=== PATIENT | male | born 1950 | race Caucasian/White ===

== ENCOUNTER → 2023-05-20 | Outpatient (CLI) | payer OTHER, SELFPAY ==
--- OUTSIDE RECORDS SUMMARY | 2023-05-20 09:58 | XMS RPT_ITS | CCD ---
Author Name Unknown Address [address] [place] [address] Organization [facility] Care Team Providers Care Special Procedures Tech Name Role Phone JESSICA ORTEZ Unavailable Unavailable NOAH FISHER Unavailable Unavailable Nilson Parker Unavailable Unavailable PETERS, ADEN Tolbert Admitting Unavailable PETERS, ADEN Tolbert Attending Unavailable PETERS, ADEN Tolbert Primary Care Unavailable MICHAEL, EDITH Consulting Unavailable EDITH RODRIGUEZ Referring Unavailable BK, RAISSA Moreno Admitting Unavailable BK, RAISSA E Primary Care Unavailable BKRAISSA DAVIS Attending Unavailable PROVIDER, UNKNOWN Consulting Unavailable PROVIDER, UNKNOWN Consulting Unavailable PROVIDER, UNKNOWN Consulting Unavailable MICHAEL, EDITH Consulting Unavailable EDMUNDO, ANNIE PAC Admitting Unavailable EDMUNDO, ANNIE PAC Primary Care Unavailable EDMUNDO, ANNIE PAC Attending Unavailable PROVIDER, UNKNOWN Consulting Unavailable PROVIDER, UNKNOWN Consulting Unavailable PROVIDER, UNKNOWN Consulting Unavailable GARCIA, JOSE PAC Admitting Unavailable GARCIA, JOSE PAC Primary Care Unavailable GARCIA, JOSE PAC Attending Unavailable BROWN, EDITH Consulting Unavailable PROVIDER, UNKNOWN Consulting Unavailable PROVIDER, UNKNOWN Consulting Unavailable PROVIDER, UNKNOWN Consulting Unavailable Problems Active Problems Problem Classification Problem Date Documented Da te Episodic/Chronic Essential hypertension (1 source) Essential (primary) hypertension; 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: [ESSENTIAL (PRIMARY) HYPERTENSION] Onset: 04-07-2017 Chronic Hyperplasia of prostate (1 source) Benign prostatic hyperplasia without lower urinary tract symptoms; 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: [BENIGN PROSTATIC HYPERPLASIA WITHOUT LOWER URINRY TRACT SYMP] Onset: 04-07-2017 Chronic Nausea and vomiting (1 source) Vomiting, unspecified; 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: [VOMITING, UNSPECIFIED] Onset: 04-07-2017 Osteoarthritis (1 source) Unilateral primary osteoarthritis, right knee; 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: [Unilateral primary osteoarthritis, right knee] Onset: 02-10-2023 Chronic Sprains and strains (3 sources) Sprain of medial collateral ligament of right knee, subsequent encounter; 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: [Sprain of medial collateral ligament of right knee, subsequent encounter] Onset: 02-10-2023 Episodic Unclassified (1 source) Unknown / UNK(Unknown) Onset: 03-04-2017 Past or Other Problems Problem Classification Problem Date Documented Da te Episodic/Chronic Abdominal hernia (1 source) Unilateral inguinal hernia, without obstruction or gangrene, not specified as recurrent; 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: [UNIL INGUINAL HERNIA, W/O OBST OR GANGR, NOT SPCF RECUR] Onset: 04-07-2017 Episodic Calculus of urinary tract (1 source) Calculus of ureter; 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: [CALCULUS OF URETER] Onset: 04-07-2017 Episodic Other aftercare (1 source) 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; 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: [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] Onset: 04-07-2017 Episodic Unclassified (1 source) RIGHT URETERAL STONE Onset: 03-04-2017 Results Test Name Value Interpretation Reference Range Facil ity Encounters Encounter Date Encounter Type Care Provider Facility Start: 02-10-2023 End: 03-30-2023 ambulatory [place] Start: 12-01-2022 End: 12-01-2022 Emergency department patient visit [facility] Start: 09-11-2022 End: 09-11-2022 ambulatory JOSE GARCIA [facility] Start: 11-28-2019 Emergency department patient visit ADEN PETERS [facility] Start: 03-04-2017 Evaluation and manag ement of inpatient Nilson Parker Facility:[facility] Start: 02-03-2017 End: 02-03-2017 Emergency department patient visit JESSICA ORTEZ Facility: Payers Date Payer Category Payer Unknown [id number] 1950 Unknown [id number] 1950 Unknown [id number] Unknown [id number] Summary Purpose Family History No Family History Records FoundNo Family History Records FoundNo Family History Records FoundNo Family History Records FoundNo Family History Records Found Advance Directives No Advanced Directives Records FoundNo Advanced Directives Records FoundNo Advanced Directives Records FoundNo Advanced Directives Records FoundNo Advanced Directives Records Found Additional Source Comments (unrecognized sect ion and content) No Status Records FoundNo Status Records FoundNo Status Records FoundNo Status Records FoundNo Status Records Found INFORMATION SOURCE (unrecogn ized section and content) DATE CREATED AUTHOR AUTHOR'S ORGANIZ ATION 09/28/2017 [facility] DATE CREATED AUTHOR AUTHOR'S ORGANIZ ATION 11/28/2019 [facility] DATE CREATED AUTHOR AUTHOR'S ORGANIZ ATION 08/11/2020 [facility] DATE CREATED AUTHOR AUTHOR'S ORGANIZ ATION 04/01/2023 [facility] FOR RECORDS PERTAINING TO PATIENTS WHO ARE OR HAVE BEEN ENROLLED IN A CHEMICAL DEPENDENCY/SUBSTANCEABUSE PROGRAM, SOME INFORMATION MAY BE OMITTED. This clinical summary was aggregated from multiple sources. Caution should be exercised in using it in the provision of clinical care. This summary normalizes information from multiple sources, and as a consequence, information in this document may materially change the coding, format and clinical context of patient data. In addition, data may be omitted in some cases. CLINICAL DECISIONS SHOULD BE BASED ON THE PRIMARY CLINICAL RECORDS. [facility]. provides no warranty or guarantee of the accuracy or completeness of information in this document.
[2023-05-20 10:20] LABS: Absolute Lymphocyte Count 2.48 X10^3/uL (0.83-4.51); Absolute Neutrophil Count 3.6 X10^3/uL (2.0-7.7); Basophil# 0.07 X10^3/uL; Basophil% 0.9 % (0-1); Eosinophil# 0.48 X10^3/uL; Eosinophils% 6.5 % (0-5); Hematocrit 49.7 % (40-54); Hemoglobin 15.9 g/dL (13.0-16.5); Lymphocyte # 2.48 X10^3/ul (0.83-4.51); Lymphocyte % 33.6 % (19-41); Mean Corpuscular Hgb 27.6 pg (27.0-32.0); Mean Corpuscular Volume 86.1 fL (80-94); Mean Platelet Vol. 9.6 fl (6.2-12.0); Monocyte# 0.75 X10^3/uL; Monocyte% 10.2 % (0-10); NRBC Flagged by Analyzer 0 % (0-5); Neutrophil # 3.59 X10^3/uL (2.7-7.7); Neutrophil % 48.7 % (47-70); Platelet Count 237 K/mm3 (150-450); RBC Distribution Width CV 13.2 % (11.6-14.6); RBC Distribution Width SD 41.4 fl (35.1-43.9); Red Blood Count 5.77 M/mm3 (4.6-6.2); White Blood Count 7.4 K/mm3 (4.4-11.0)
[2023-05-20 10:49] LABS: AST(SGOT) 21 U/L (15-37); Alanine Aminotransfer ALT/SGPT 30 U/L (16-61); Albumin, Serum 3.8 g/dL (3.2-5.0); Alkaline Phosphatase 116 U/L (45-117); Anion Gap 3 (5-15); BUN 23 mg/dL (7-18); BUN/Creat Ratio 23.2 RATIO (10-20); Calcium,Total 9.4 mg/dL (8.5-10.1); Chloride 110 mmol/L (98-107); Cholesterol 131 mg/dL (200); Creatinine, Serum 0.99 mg/dL (0.70-1.30); EST Glomerular Filtration Rate 79 mL/min (>60); Est Glom Filt Rate - Afr Amer 95 mL/min (>60); Globulin 3.7 g/dL (2.2-4.2); Glucose 103 mg/dL (74-106); High Density Lipoprotein 39 mg/dL; Potassium 4.3 mmol/L (3.5-5.1); Protein, Total 7.5 g/dL (6.4-8.2); Sodium Level 142 mmol/L (136-145); Triglycerides 91 mg/dL; Very Low Density Lipoprotein 18 mg/dL (5-40)
== END | disposition home or self-care (01) ==
LOC: BIMLAB 09:23
PROVIDERS: PCP Internal Medicine; Referring Provider Internal Medicine; Visit Provider Internal Medicine
DX: I10 Essential (primary) hypertension (principal); E78.2 Mixed hyperlipidemia
CPT/HCPCS: 36415; 80053; 80061; 85025

== ENCOUNTER 2023-07-13 05:48 | Day surgery (SDC) | payer OTHER, SELFPAY ==
--- NOTE | 2023-06-30 07:50 | EKG12_ITS ---
Test Reason : PRE-OP Blood Pressure : / mmHG Vent. Rate : 054 BPM Atrial Rate : 054 BPM P-R Int : 172 ms QRS Dur : 108 ms QT Int : 448 ms P-R-T Axes : 057 006 025 degrees QTc Int : 424 ms Sinus bradycardia Otherwise normal ECG Confirmed by GLADIS URBINA, BETZAIDA ([id number]), desk editor LUZ ALEXANDER ([id number]) on 06/30/2023 9:44:09 AM Referred By: Neel Hui Confirmed By:BETZAIDA GRIFFITH MD
[2023-06-30 09:27] LABS: Hematocrit 47.7 % (40-54); Hemoglobin 15.6 g/dL (13.0-16.5); Mean Corp Hgb Conc 32.7 g/dL (32-36); Mean Corpuscular Hgb 27.7 pg (27.0-32.0); Mean Corpuscular Volume 84.7 fL (80-94); Mean Platelet Vol. 9.8 fl (6.2-12.0); Platelet Count 220 K/mm3 (150-450); RBC Distribution Width CV 13.3 % (11.6-14.6); RBC Distribution Width SD 41.1 fl (35.1-43.9); Red Blood Count 5.63 M/mm3 (4.6-6.2); White Blood Count 6.7 K/mm3 (4.4-11.0)
[2023-06-30 10:00] LABS: Anion Gap 4 (5-15); BUN 21 mg/dL (7-18); BUN/Creat Ratio 20.8 RATIO (10-20); Calcium,Total 9.1 mg/dL (8.5-10.1); Chloride 108 mmol/L (98-107); Creatinine, Serum 1.01 mg/dL (0.70-1.30); EST Glomerular Filtration Rate 77 mL/min (>60); Est Glom Filt Rate - Afr Amer 93 mL/min (>60); Glucose 94 mg/dL (74-106); Potassium 3.8 mmol/L (3.5-5.1); Sodium Level 141 mmol/L (136-145)
[2023-07-13] VITALS (9 sets, daily range): BP systolic 77–132; BP diastolic 46–82; PULSE 51–61; RESP 16–18; TEMP 36.3–36.4; O2SAT 87–98; BMI 26.5
[2023-07-13] MEDS: Lactated Ringers 1,000 ML 15 ML IV (06:18)
--- NOTE | 2023-07-13 06:41 | HP.PCM_ITS ---
History and Physical Date of Admission: 07/13/23 Visit Reasons: INGUINAL HERNIA Chief Complaint: inguinal hernia Is patient in pain?: No Allergies No Known Allergies Allergy (Unverified 06/08/23 13:01) Medications apremilast 30 mg tablet (Otezla) 30 mg PO BID 05/20/23 [History Confirmed 06/08/23] atorvastatin 20 mg tablet 20 mg PO QHS 05/20/23 [History Confirmed 06/08/23] meloxicam 7.5 mg tablet 7.5 mg PO DAILY #30 tabs 05/20/23 [Rx Confirmed 06/08/23] metoprolol succinate 50 mg capsule sprinkle, ext. release 24 hr 50 mg PO DAILY 05/20/23 [History Confirmed 06/08/23] omeprazole 20 mg tablet,delayed release 20 mg PO DAILY 05/20/23 [History Confirmed 06/08/23] [facility] Medical History Arthritis Cataracts, bilateral High blood pressure High blood triglycerides History of cardiac murmur as a child Kidney stones Surgical History H/O lithotripsy H/O toe surgery History of hernia surgery Hx of Achilles tendon repair Hx of cataract surgery Family History Mother Cancer breastFather Myocardial infarction, Onset Age: 48Daughter Neuromyelitis opticaSon Diabetes Social History household members: spouse and children housing: house current occupational status: employed current occupation: [employer]- [place] [employer] Smoking Status: Never smoker Electronic Cigarette Use: not used alcohol intake: current alcohol intake frequency: holidays/special occasions only substance use type: does not use what type of physical activity do you participate in: none fariha/judaism: Temple seatbelt use: always do you feel safe at home: Yes HPI HPI HPI: 72-year-old gentleman is referred by Dr. Kerline Craven for surgical consultation regarding a left inguinal hernia and a written compromise surgical consult and recommendations will be returned to her. There are hernias noted to be quite sizable though the patient does not describe episodes of incarcerated related pain. When further discussing with him he is completely unable to reduce the area however. Since our office visit he has attempted to reduce it but has been unsuccessful. 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 For at least 4 to 5 years he has had a recurrent left inguinal hernia. He had a remote repair as a child. He is not able to reduce the area. He thinks it is slowly enlarging. It is of additional note that he is also had a previous open right inguinal hernia repair in 1996. He has not noticed any particular weakness on the right. He enjoys good health. Has some hypertension hypercholesterolemia which she controls with medication. He has not had any abdominal surgical procedures. ROS General General: No weight change, appetite, fatigue, colon cancer, breast cancer or weakness HEENT HEENT: Yes eye surgery; No difficulty swallowing, eye injury, swollen glands or hoarseness Endo Endocrine: No thyroid disease, diabetes mellitus, thyroid cancer, Hair loss, heat intolerance or cold intolerance Skin Skin: No rash or changing moles Musc Musculoskeletal: Yes arthritis; No back problems, rheumatoid arthritis, gout or joint pain Cardio Cardiovascular: Yes murmur and high blood pressure; No pacemaker, heart disease, atrial fibrillation, heart attack, heart stent, palpitations, shortness of breat with exertion or chest pain Psych Psychiatric: No depression, anxiety or hearing voices Resp Respiratory: No shortness of breath, No sleep apnea, No cough, No COPD, No asthma, No emphysema and No wheezing Gastro Gastrointestinal: No abdominal pain, No nausea or vomiting, No diarrhea, No constipation, No blood in stool, No acid reflux, No hemorrhoids, No ulcers, No gallbladder problem and No black,tarry stools Danny Hematologic: No blood thinners, No blood disorders, No bleeding, No anemia and No blood clots Neuro Neurologic: No system reviewed and no additional complaints, except as documented, No as per HPI, No abnormal gait, No abnormal hearing, No abnormal movements, No abnormal speech, No behavioral changes, No burning sensations, No confusion, No convulsions, No disequilibrium, No dizziness, No localized weakness, No frequent falls, No headache(s), No lack of coordination, No loss of vision, No memory loss, No numbness, No other visual disturbances, No radicular pain, No restless legs, No sensory deficit, No syncope, No tingling, No tremor(s), No weakness and No other Exam Const General: cooperative, healthy appearing, comfortable and no acute distress [facility] Head: normal to inspection Eyes General: appearance normal, both eyes and all related structures Neck Neck: normal visual inspection Chest Chest palpation & inspection: normal inspection of the chest Resp Effort & Inspection: normal respiratory effort Auscultation: clear to auscultation bilaterally Cardio Rate: regular rate Rhythm: regular rhythm GI Palpation: soft and no hepatosplenomegaly Other: Large incarcerated left inguinal hernia. Not reducible with manual manipulation or supine positioning. Testicle descended without mass Healed right groin incision however with slight diffuse give with straining. Nontender. Descended right testicle Musc Cervical Spine: normal cervical lordosis Skin General: no rashes or lesions noted Neuro General: patient alert, patient awake and patient oriented x3 Extrem General: no calf tenderness Psych Appearance: grossly normal Assessment and Plan Assessment and Plan (1) Inguinal hernia of left side without obstruction or gangrene: Status: Acute Plan: 72-year-old gentleman. He has a incarcerated recurrent left inguinal hernia. By inspection this would be consistent with sigmoid colon. He has not had a colonoscopy but did take a Cologuard several years back which was negative. I do recommend to him a left inguinal hernia repair. I have offered him a laparoscopic left inguinal hernia repair with mesh. I have cautioned the however this could require a hybrid approach through an open incision to release the incarcerated contents. Depending upon the difficulty of the procedure if laparoscopically a recurrent right inguinal hernia is identified as I have some suspicion about clinically that I could pursue a laparoscopic recurrent right inguinal hernia repair with mesh. He has had an opportunity to ask and have questions answered. It is obviously the incarcerated hernia on the left that is of primary concern. He is aware of technique, benefit, risk, alternatives. He has had an opportunity to ask and have questions answered. We did discuss briefly some postoperative restrictions as well. I appreciate the opportunity of assisting with the surgical care. We will schedule and proceed at his discretion. Copy: Dr. Kerline Hui M.D., F.A.C.S Patient has been reexamined. The left inguinal hernia which is recurrent remains nonreducible. The patient is aware that we may need to utilize a laparoscopic hybrid open approach to reduce this left inguinal hernia. He is also aware that if a right inguinal hernia is identified in the left is otherwise uncomplicated then I have offered him a laparoscopic right inguinal hernia repair as well. He is desiring of this as an option. We will proceed as noted. Neel Hui M.D., F.A.C.S.
--- NOTE | 2023-07-13 06:58 | DCINST_ITS ---
Discharge Instructions Procedure General Surgery Diet Discharge Diet: Light diet - advance as tolerated (if you have questions about your diet instructions, please talk to you doctor.) Activity Discharge Activity: May Not Drive (for 3-5 days or while taking narcotic pain medicine.) May shower in (days): 1 Lifting Restrictions: 10 pounds Dressing / Incision Call your doctor if your incision/area has: Continuous Slow Oozing, Sudden Increased Bleeding, Increased Pain/ Swelling, Increased Redness and Foul Smelling Discharge Call your doctor if you observe: Fever of 101 or Higher Suture Line Care: Avoid Pulling/Pushing and Avoid Pinching/Bending Additional Dressing/Incision Instructions:: Change or remove dressing in 4 days. Leave steri-strips in place for 1 week. Follow Up Care Please Follow Up With: Neel Hui MD When: Call [phone] to make an appointment to be seen in about 10 days. Test Results: Test results from this visit will be discussed in further detail at your follow- up appointment, if applicable. Discharge Plan Admission Attending Provider: Neel Hui Primary Care Provider: Kerline Craven Discharge Orders/Prescriptions Prescriptions: No Action atorvastatin 20 mg tablet 20 mg PO QHS metoprolol succinate 50 mg capsule,sprinkle,ER 24hr 50 mg PO QHS omeprazole 20 mg tablet,delayed release (DR/EC) 20 mg PO QHS Otezla 30 mg tablet 30 mg PO BID meloxicam 7.5 mg tablet 7.5 mg PO QHS Qty: 30 2RF Other Ambulatory Orders: 12 Lead EKG (Routine) Timeframe: [id number] Location: None Selected Ordered By: Dr. Neel Hui Referrals / Follow Up: Kerline Craven MD [Primary Care Provider] - Disposition Disposition (needs filled in before D/C Order can be placed): Home, Self Care
[2023-07-13] MEDS: Cefazolin 2 GM in 0.9% Normal Saline (100mL Bag) 100 ML IV (07:23)
[2023-07-13] MEDS: Bupivacaine Mpf 0.5% 30 ML VIAL (07:42)
--- NOTE | 2023-07-13 08:31 | PCM.OPRPT ---
Report of Operation Date of Procedure: 07/13/23 Pre-Operative Diagnosis: Recurrent incarcerated left inguinal hernia Post-Operative Diagnosis: Recurrent incarcerated direct left inguinal hernia with small indirect component Surgery/Procedure Performed:: Laparoscopic left inguinal herniorrhaphy with Bard 3D max large mesh. Bard 3D max large. Lot [id number], reference [id number], expiry date 12/31/2026 Description of Surgical Findings:: Timeout informed consent was obtained. 73-year-old gentleman was taken to the operating placed upon the table underwent general endotracheal intubation anesthesia. Ancef 2 g were given intravenously. The abdomen and scrotum were sterilely prepped and draped. 0.5% Marcaine was used as a local anesthetic. Throughout the procedure a total of 30 cc was used. Skin sites were pre and SIs. A vertical infraumbilical incision was created holding sutures of 0 Vicryl placed varies Inserted saline drop test performed the abdomen was insufflated with CO2 to a pressure of 10 mmHg pressure. 10 mm trocar inserted. 10 mm laparoscope inserted. Inspection revealed a large defect in the left groin with omental fibrofatty tissue involved. With mild pressure this was able to be easily reduced. This was determined to be a direct defect medial to the inferior epigastric. Inspection of the right groin was completely occluded there were adhesions of omentum to the anterior abdominal wall extending down to the right groin obliterating clean access to the right groin. I did not make any attempt to free these adhesions at this time as the patient was clinically not symptomatic and he only had a mild weakness on clinical examination. 5 mm trocars were placed in the right and left lower quadrant. The peritoneum superior and lateral to the internal ring on the left was incised carried medially. Then tediously the peritoneum was dissected free. It was rather adherent I did obtain some defects in the peritoneum was then able to identify the very large hernia sac within this direct defect and carefully and tediously completely dissected free. Fortunately was able to completely reduce the sac. I completely freed the peritoneum to gain good access to that indirect and direct space and then identified the pubic tubercle and freed up anteriorly as well. I now had excellent visualization of the left groin with likely a small weakness at the indirect spot large deep hernia site at the direct spot no evidence of any femoral hernias. I placed a large Bard 3D max mesh very nicely. I secured that laterally superiorly and medially with secure strap. I felt that I had absolutely excellent coverage of the groin area in particular the hernial defect. The peritoneum was approximated self and I utilized the hernia sac to assist with obliteration to the mesh and secured that to the anterior abdominal wall with secure strap and Hem-o-chi clip. Complete obliteration of the mesh was achieved. Hemostasis was intact. The abdomen was deflated CO2. The fascia at the umbilicus approximately #0 Vicryl for great suture. Skin edges approximated up to 4 Monocryl subdermal stitches. Steri-Strips Telfa OpSite dressings applied. Sponge and instrument and needle counts were reported to the surgeon to be correct. Specimens none. Drains none. Blood loss minimal. The patient was taken to the recovery room in satisfactory addition with apparent complication Neel Hui M.D., F.A.C.S. Surgeon: Neel Hui Type of Anesthesia: General and Local Anesthesiologist: Keron Mason
[2023-07-13] MEDS: Acetaminophen 325 MG Tablet 650 MG PO (11:21)
== END 2023-07-13 12:12 | disposition home or self-care (01) ==
LOC: SDC 05:49 → AC 05:50
PROVIDERS: PCP Internal Medicine; Referring Provider Surgery; Visit Provider Surgery
PROC: (CPT 49650; principal; 2023-07-13 07:10)
DX: K40.31 Unilateral inguinal hernia, with obstruction, without gangrene, recurrent (principal); I10 Essential (primary) hypertension; Z87.19 Personal history of other diseases of the digestive system; Z87.898 Personal history of other specified conditions; M19.90 Unspecified osteoarthritis, unspecified site; K21.9 Gastro-esophageal reflux disease without esophagitis
CPT/HCPCS: 49651; 00840; 36415; 80048; 85027; 93005; J7120; C1781; J2405

== ENCOUNTER → 2024-05-24 | Outpatient (CLI) | payer OTHER, SELFPAY ==
[2024-05-24 12:21] LABS: Absolute Lymphocyte Count 1.82 X10^3/uL (0.83-4.51); Absolute Neutrophil Count 3.3 X10^3/uL (2.0-7.7); Basophil# 0.06 X10^3/uL; Eosinophil# 0.28 X10^3/uL; Eosinophils% 4.6 % (0-5); Hematocrit 46.3 % (40-54); Hemoglobin 15.5 g/dL (13.0-16.5); Lymphocyte # 1.82 X10^3/ul (0.83-4.51); Lymphocyte % 29.6 % (19-41); Mean Corp Hgb Conc 33.5 g/dL (32-36); Mean Corpuscular Hgb 28.5 pg (27.0-32.0); Mean Corpuscular Volume 85.3 fL (80-94); Monocyte# 0.69 X10^3/uL; Monocyte% 11.2 % (0-10); NRBC Flagged by Analyzer 0 % (0-5); Neutrophil # 3.28 X10^3/uL (2.7-7.7); Neutrophil % 53.4 % (47-70); Platelet Count 224 K/mm3 (150-450); RBC Distribution Width CV 13.6 % (11.6-14.6); RBC Distribution Width SD 41.9 fl (35.1-43.9); Red Blood Count 5.43 M/mm3 (4.6-6.2); White Blood Count 6.1 K/mm3 (4.4-11.0)
[2024-05-24 13:13] LABS: AST(SGOT) 28 U/L (15-37); Alanine Aminotransfer ALT/SGPT 36 U/L (16-61); Albumin, Serum 3.7 g/dL (3.2-5.0); Alkaline Phosphatase 88 U/L (45-117); Anion Gap 7 (5-15); BUN 18 mg/dL (7-18); BUN/Creat Ratio 19.4 RATIO (10-20); Calcium,Total 9.8 mg/dL (8.5-10.1); Chloride 106 mmol/L (98-107); Cholesterol 123 mg/dL (200); Creatinine, Serum 0.93 mg/dL (0.70-1.30); EST Glomerular Filtration Rate 84 mL/min (>60); Est Glom Filt Rate - Afr Amer 102 mL/min (>60); Globulin 3.6 g/dL (2.2-4.2); Glucose 103 mg/dL (74-106); High Density Lipoprotein 45 mg/dL; Potassium 3.9 mmol/L (3.5-5.1); Protein, Total 7.3 g/dL (6.4-8.2); Sodium Level 138 mmol/L (136-145); Triglycerides 97 mg/dL; Very Low Density Lipoprotein 19 mg/dL (5-40)
== END | disposition home or self-care (01) ==
LOC: BIMLAB 08:05
PROVIDERS: PCP Internal Medicine; Referring Provider Internal Medicine; Visit Provider Internal Medicine
DX: I10 Essential (primary) hypertension (principal); E78.2 Mixed hyperlipidemia
CPT/HCPCS: 36415; 80053; 80061; 85025

== ENCOUNTER → 2024-07-28 | Outpatient (CLI) | payer OTHER, SELFPAY ==
--- NOTE | 2024-07-28 08:57 | ART_ITS ---
Reason For Study Reason For Study: PVD Procedure A bilateral lower extremity continuous wave Doppler with analog waveform analysis,segmental pressures,and ankle brachial indexes without exercise. Left Segmental Pressures Left brachial= 144mmHg. Left posterior tibial artery = 169mmHg. Left dorsalis pedis artery = 161mmHg. Left digit = 132 mmHg. The left posterior tibial artery waveforms are triphasic. The left dorsalis pedis waveforms are triphasic. Right Segmental Pressures Right brachial= 149mmHg. Right posterior tibial artery = 161mmHg. Right dorsalis pedis artery = 177mmHg. Right digit = 164 mmHg. The right posterior tibial artery waveforms are triphasic. The right dorsalis pedis waveforms are triphasic. Indices The right ankle brachial index by the posterior tibial artery is 1.08. The right ankle brachial index by the dorsalis pedis is 1.19. The right digital-brachial index is 1.10. The left ankle brachial index by the posterior tibial artery is 1.13. The left ankle brachial index by the dorsalis pedis is 1.08. The left digital-brachial index is 0.89. VL/Lower Ext Art Exam w/o Exercis Interpretation Summary Triphasic Doppler waveforms are noted at ankle level bilaterally. Pulse-volume recordings appear satisfactory at all levels bilaterally. Resting ankle-brachial indices are normal bilaterally. Digi yesi-brachial indices are normal bilaterally. There is no evidence of significant arterial occlusive disease in the lower ext remities bilaterally. Ordering Physician: Micheal Taylor Referring Physician: Kerline Craven Performed By: Ti Woodard RVT
--- NOTE | 2024-07-28 08:57 | VDLE_ITS ---
Reason For Study Reason For Study: Edema RIGHT LEFT GSV is normal. GSV is normal. CFV is compressible, spontaneous, phasic, competent CFV is compressible, spontaneous, phasic, competent, and demonstrates normal augmentation. and demonstrates normal augmentation. FV is compressible, spontaneous, phasic, competent FV is compressible, spontaneous, phasic, competent and demonstrates normal augmentation. and demonstrates normal augmentation. POP V is compressible, spontaneous, phasic, competent POP V is compressible, spontaneous, phasic, competent and demonstrates normal augmentation. and demonstrates normal augmentation. T/P Trunk is compressible. T/P Trunk is compressible. PTV is compressible. PTV is compressible. RT PerV is compressible. LT PerV is compressible. Procedure This is a venous duplex using B-mode, color flow and spectral Doppler. Exam performed in department. The exam was diagnostic. VL/Venous Duplex US - Sp Extrem Interpretation Summary Deep veins of the lower extremities are bilaterally patent and compressible seg mentally. There is no evidence of deep vein thrombosis on either side. Valvular competence appears intact within the p roximal deep venous systems bilaterally. The great saphenous veins appear bilaterally patent and compressible segmentall y. Ordering Physician: Micheal Taylor Referring Physician: Kerline Craven Performed By: Ti Woodard, RVT
--- NOTE | 2024-07-28 10:08 | RAD_ITS ---
PROCEDURE: LUMBAR SPINE 2 OR 3 VIEWS 07/28/2024 REASON FOR EXAM: OTHER HEREDITARY AND IDIOPATHIC NEUROPATHIES TECHNIQUE: 3 view(s) of the lumbar spine COMPARISON: None FINDINGS: Vertebrae: Anterior spondylosis at the L3-L4 and L4-L5 levels. Discs: Mild multilevel disc space narrowing. Alignment: Normal alignment. Exaggerated lumbar lordosis. Other: RAD/Lumbar Spine 2 or 3 Views IMPRESSION: MILD DEGENERATIVE CHANGES OF THE LUMBAR SPINE. Exaggerated lumbar lordosis. Reading Location: [place] [id number]
== END | disposition home or self-care (01) ==
PROVIDERS: PCP Internal Medicine; Referring Provider Student in an Organized Health Care Education/Training Program; Visit Provider Student in an Organized Health Care Education/Training Program
DX: G60.8 Other hereditary and idiopathic neuropathies (principal); I73.89 Other specified peripheral vascular diseases; R60.0 Localized edema
CPT/HCPCS: 72100; 93923; 93970

== ENCOUNTER → 2024-10-24 | Outpatient (CLI) | payer OTHER, SELFPAY ==
--- NOTE | 2024-10-24 11:02 | NEURO ---
NCS and/or EMG Patient Report Ordering Doctor: Micheal Taylor DATE OF SERVICE: 10/24/24 Clinical Summary: 74 year old male with symptoms of numbness and tingling in both feet. Nerve Conduction Studies Summary: Nerve conduction studies were performed in the bilateral lower extremities. The sural SNAP distal latency was prolonged bilaterally. The right peroneal-EDB CMAP amplitude was diffusely reduced. The right tibial-AH CMAP distal latency was prolonged. The peroneal and tibial motor conduction velocities were reduced bilaterally. The peroneal and tibial F-wave onset latencies were prolonged. Needle Examination Summary: Needle examination of select muscles of the bilateral lower extremities demonstrated a higher proportion of motor unit action potentials with reduced recruitment, increased amplitude, increased duration, and polyphasia in the right biceps femoris (long head), tibialis anterior, peroneus longus, and medial gastrocnemius muscles. Impression: This is an abnormal study. 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 The lower motor conduction velocities and prolonged F-wave onset latencies are suggestive of a mild, length-dependent, large-fiber peripheral polyneuropathy although not definitively diagnostic by itself. Multi Select Codes Neurology Neurology Interp Codes: 78846-87 Musc test done w/n test comp (interp) (2) and 17709-24 Nrv cndj test 7-8 studies (interp)
== END | disposition home or self-care (01) ==
LOC: PSN 08:43
PROVIDERS: PCP Internal Medicine; Referring Provider Student in an Organized Health Care Education/Training Program; Visit Provider Student in an Organized Health Care Education/Training Program
DX: G60.8 Other hereditary and idiopathic neuropathies (principal); I73.89 Other specified peripheral vascular diseases; R60.0 Localized edema
CPT/HCPCS: 95886; 95910

== ENCOUNTER → 2024-11-27 | Outpatient (CLI) | payer OTHER, SELFPAY ==
--- NOTE | 2024-11-27 16:30 | MRI_ITS ---
PROCEDURE: SPINE LUMBAR (ROUTINE) 11/27/2024 REASON FOR EXAM: LUMBAR RADICULOPATHY,NEUROPATHY TECHNIQUE: SPINE LUMBAR (ROUTINE) FINDINGS: Normal lumbar alignment and vertebral body height. Normal conus and cauda equina. No retroperitoneal mass. Mild canal narrowing at L1-2, L2-3 and L3-4 from degenerative annular bulging. At L4-5 severe right L4 foraminal stenosis from bulging disc and facet degeneration with potential right L4 nerve root impingement. Mild central canal narrowing. L5-S1 is positive for facet arthrosis MRI/Spine Lumbar (Routine) IMPRESSION: Asymmetric right-sided foraminal stenosis at L4-5 with potential L4 nerve root impingement. Please correlate clinically Reading Location: [id number]
--- OUTSIDE RECORDS SUMMARY | 2024-11-27 17:56 | XMS RPT_ITS | CCD ---
Author Organization [facility] Care Team Providers Care Executive Creative Director Name Role Phone JESSICA ORTEZ Unavailable Unavailable NOAH FISHER Unavailable Unavailable Nilson Parker Unavailable Unavailable ADEN PETERS Admitting Unavailable ADEN PETERS Attending Unavailable ADEN PETERS Primary Care Unavailable Dr. Kerline Craven Attending Provider [phone] Gorge PEREZ, Jose Kelly Unavailable [phone] Carlos URBINA, Dr. Gunn ([facility]) Unavailable [phone] Lisette URBINA ([place]), Dr. Stock Unavailable [phone] Hannah URBINA, Dr. Higinio Adamson Unavailable [phone] [facility], . Ml office Unavailable Keith URBINA, Dr. Nilson Moreno Unavailable Denzel Rodriguez MD Unavailable Sal CLIENT SUCCESS MANAGER, Venus C Unavailable Unavailable Chepe URBINA, Neel Sarkar Unavailable Luz Maria Wright Unavailable Unavailable Duncan BOUDREAUX, Christine Unavailable Unavailable Geoffrey DIASN, Nelda Unavailable Unavailable Ro MAHER, Margaret Sarkar Unavailable Unavaila otis Lucas CLIENT SUCCESS MANAGER, Imani Unavailable Unavailable Vipin RN, Courtney Y Unavailable Unavailable Nilesh CLIENT SUCCESS MANAGER, Dacia Unavailable Unavailable Lorie DIASN, Eileen K Unavailable Unagauri Singleton PA-C, Raya Kelly Unavailable [phone] Devika CLIENT SUCCESS MANAGER, Mira Lopez Unavailable Unavailab le Karin CLIENT SUCCESS MANAGER, Lizbeth Sargent Unavailable Unavailab le Jaz CLIENT SUCCESS MANAGER, Sachi Buchanan Unavailable Unavailab le [place] CLIENT SUCCESS MANAGER, Ritu Unavailable Unavailabl e Seferino CLIENT SUCCESS MANAGER, Daphne N Unavailable Unavaila ble Unavailable Unavailable BK, BYRON E Admitting Unavailable BK, BYRON E Primary Care Unavailable BK, BYRON E Attending Unavailable MICHAEL, DENZEL Consulting Unavailable BROWN, DENZEL Referring Unavailable PROVIDER, UNKNOWN Consulting Unavailable PROVIDER, UNKNOWN Consulting Unavailable PROVIDER, UNKNOWN Consulting Unavailable EDMUNDO, ANNIE PAC Admitting Unavailable EDMUNDO, ANNIE PAC Primary Care Unavailable EDMUNDO, ANNIE PAC Attending Unavailable BROWN, DENZEL Consulting Unavailable PROVIDER, UNKNOWN Consulting Unavailable PROVIDER, UNKNOWN Consulting Unavailable PROVIDER, UNKNOWN Consulting Unavailable GARCIA, JOSE PAC Attending Unavailable GARCIA, JOSE PAC Admitting Unavailable GARCIA, JOSE PAC Primary Care Unavailable BROWN, DENZEL Consulting Unavailable PROVIDER, UNKNOWN Consulting Unavailable PROVIDER, UNKNOWN Consulting Unavailable PROVIDER, UNKNOWN Consulting Unavailable BK, BYRON E Admitting Unavailable BK, BYRON E Primary Care Unavailable BK, BYRON E Attending Unavailable BROWN, DENZEL Consulting Unavailable BROWN, DENZEL Referring Unavailable PROVIDER, UNKNOWN Consulting Unavailable PROVIDER, UNKNOWN Consulting Unavailable PROVIDER, UNKNOWN Consulting Unavailable Herber URBINA, Dr. Churchill Primary Care Provider [phone] Brandon DPM, Dr. Burton Attending Provider [phone] Brandon BALL, Dr. Burton Referring Provider [phone] Dr. Iftikhar Headley MD Attending Provider [phone] Brandon BALL, Dr. Burton Other Provider Kofi URBINA, Dr. Galindo Attending Provider [phone] Dr. Kerline Craven MD Referring Provider Petey MANAGER WORK-CChristelle Attending Provider [phone] Yonis URBINA, Dr. Powers Attending Provider [phone] Herber, Kerline Primary Care Unavailable Micheal Taylor Attending Unavailable Micheal Taylor Referring Unavailable [place], Kerline Primary Care Unavailable Micheal Taylor Attending Unavailable Micheal Taylor Referring Unavailable Herber, Kerline Primary Care Unavailable Christelle Angelo Attending Unavailable Christelle Angelo Referring Unavailable [place], Kerline Primary Care Unavailable Herber, Kerline Attending Unavailable [place], Kerline Referring Unavailable [place], Kerline Primary Care Unavailable [place], Kerline Attending Unavailable Herber, Kerline Referring Unavailable Herber, Kerline Attending Unavailable Herber, Kerline Primary Care Unavailable Herber, Kerline Referring Unavailable Micheal Taylor Referring Unavailable [place], Kerline Primary Care Unavailable Micheal Taylor Attending Unavailable Micheal Taylor Consulting Unavailable Josie Kirby Attending Unavailable [place], Kerline Primary Care Unavailable Micheal Taylor Referring Unavailable [place], Kerline Referring Unavailable Herber, Kerline Primary Care Unavailable Christelle Angelo Attending Unavailable Gio Somers Attending Unavailable Herber, Kerline Primary Care Unavailable Medications Current Medications Medication Drug Class(es) Dates Sig (Normalized) Sig (Original) apremilast 30 mg oral tablet (9 sources) Start: 05-20-2023 take 1 tablet by mouth twice daily Apremilast (Otezla) 30 mg tablet Active 30 mg PO TWICE A DAY May 20, 2023 1:00am Comment on above: pt normally only adela es 1 cyclobenzaprine hydrochloride 10 mg oral tablet (10 sources) Muscle Relaxant Start: 07-04-2021 take 1 tablet by mouth three times daily as needed Cyclobenzaprine HCl 10 MG Oral Tablet ; 1 (one) Tablet three times daily as needed for muscle spasm; may cause drowsiness for 0 days Quantity: 30 {Tablet} Refills: 0 Ordered: 04-Jul-2021 CHRIS Garcia Start: 04-Jul-2021 Comments: Medication taken as needed. Start: 02-16-2011 End: 05-23-2013 take 1 tablet by mouth three times daily as needed FLEXERIL, 10MG (Oral Tablet) ; 1 Tablet three times daily PRN for 0 days Quantity: 30 {Tablet} Refills: 1 Ordered: 05-Jul-2012 MD Neel Domingo Start: 16-Feb-2011 End: 23-May-2013 Status: Discontinued Comments: This order discontinued per [facility]. Comment on above: Medication taken as needed. This order discontin ued per [facility]. ofloxacin 3 mg/ml ophthalmic solution (5 sources) Quinolone Antimicrobial Start: 12-04-2021 Ofloxacin 0.3 % Ophthalmic Solution ; 5 Metric Drop daily for 0 days Quantity: 10 {Milliliter} Refills: 0 Ordered: 04-Dec-2021 JANUSZ Song Christine Start: 04-Dec-2021 Comments: For use in ear for otitis externa Comment on above: For use in ear for o titis externa Completed/Discontinued Medications Medication Drug Class(es) Dates Sig (Normalized) Sig (Original) acetaminophen 325 mg / HYDROcodone bitartrate 5 mg oral tablet (3 sources) Opioid Agonist Start: 07-13-2023 End: 07-22-2023 Hydrocodone-Acetam inophen 5-325 mg tablet Discontinued 1 {tbl} PO EVERY 6 HOURS as needed for pain 10 3 0 July 13, 2023 July 22, 2023 9:26am Inguinal hernia of left side without obstruction or gangrene aspirin 81 mg delayed release oral tablet (9 sources) Platelet Aggregation Inhibitor, Nonsteroidal Anti-inflammatory Drug Start: 05-20-2023 End: 06-08-2023 Aspirin (Adult Low Dose Aspirin) 81 mg tablet,delayed release (DR/EC) Discontinued 81 mg PO DAILY May 20, 2023 1:00am June 08, 2023 2:01pm take 1 tablet by mouth once yvonne y BABY ASPIRIN, 81MG (Oral Tablet Chewable) ; 1 daily (81 MG) Status: Inactive atorvastatin 20 mg oral tablet (20 sources) HMG-CoA Reductase Inhibitor Start: 07-25-2020 End: 08-29-2024 take 1 tablet by mouth at bedtime Atorvastatin 20 mg tablet Discontinued 20 mg PO AT BEDTIME 90 1 February 29, 2024 12:35pm August 29, 2024 11:38am Comment on above: Mail order. CANCEL - needs to go to mail order pharmacy ciprofloxacin 250 mg oral tablet (5 sources) Quinolone Antimicrobial Start: 04-28-2017 End: 05-05-2017 take 1 tablet by mouth twice daily Ciprofloxacin HCl 250 MG Oral Tablet ; 1 (one) Tablet two times daily for 7 days Quantity: 14 {Tablet} Refills: 0 Ordered: 28-Apr-2017 MD Neel Domingo Start: 28-Apr-2017 End: 05-May-2017 Status: Inactive fluocinolone acetonide 0.61750 mg/mg topical ointment (5 sources) Corticosteroid Start: 02-16-2011 End: 07-05-2012 FLUOCINOLONE ACETONIDE, 0.025% (External Ointment) ; 1 application(s) two times daily for 0 days Quantity: 15 {gram(s)} Refills: 2 Ordered: 05-Jul-2012 WINNIE Gentile Start: 16-Feb-2011 End: 05-Jul-2012 Status: Inactive 12 hr guaiFENesin 600 mg extended release oral tablet (5 sources) Start: 04-25-2013 End: 02-26-2015 take 1 tablet by mouth twice daily GUAIFENESIN ER, 600MG (Oral Tablet Extended Release 12 Hour) ; 1 (one) Tablet two times daily for 0 days Quantity: 12 {Tablet} Refills: 1 Ordered: 26-Feb-2015 WINNIE Gentile Start: 25-Apr-2013 End: 26-Feb-2015 Status: Inactive homatropine methylbromide 0.3 mg/ml / HYDROcodone bitartrate 1 mg/ml oral solution (5 sources) Opioid Agonist, Cholinergic Muscarinic Agonist Start: 04-21-2013 End: 05-01-2013 HYDROCODONE-HOMAT ROPINE, 5-1.5MG/5ML (Oral Syrup) ; 1 (one) teaspoon(s) every four hours as needed for cough for 10 days Quantity: 4 {Ounce} Refills: 0 Ordered: 21-Apr-2013 MD Neel Domingo Start: 21-Apr-2013 End: 01-May-2013 Status: Inactive Comments: Medication taken as needed. May cause drowsiness Comment on above: Medication taken as needed. May cause drowsiness levoFLOXacin 500 mg oral tablet (5 sources) Quinolone Antimicrobial Start: 04-21-2013 End: 04-28-2013 take 1 tablet by mouth once daily LEVOFLOXACIN, 500MG (Oral Tablet) ; 1 (one) Tablet once daily for 7 days Quantity: 7 {Tablet} Refills: 0 Ordered: 21-Apr-2013 MD Neel Domingo Start: 21-Apr-2013 End: 28-Apr-2013 Status: Inactive meloxicam 7.5 mg oral tablet (19 sources) Nonsteroidal Anti-inflammatory Drug Start: 05-20-2023 End: 08-29-2024 take 1 tablet by mouth at bedtime Meloxicam 7.5 mg tablet Discontinued 7.5 mg PO AT BEDTIME 90 March 13, 2024 3:42pm August 29, 2024 12:54pm metaxalone 800 mg oral tablet (5 sources) Start: 03-17-2011 End: 07-05-2012 take 1 tablet by mouth at bedtime SKELAXIN, 800MG (Oral Tablet) ; 1 Tablet at bedtime for 0 days Quantity: 10 {Tablet} Refills: 0 Ordered: 05-Jul-2012 WINNIE Gentileisten Ramandeep Start: 17-Mar-2011 End: 05-Jul-2012 Status: Inactive methylPREDNISolone 4 mg oral tablet (5 sources) Corticosteroid Start: 12-17-2011 End: 12-23-2011 MEDROL (CELSO), 4MG (Oral Tablet) ; 1 Tablet as directed on pack for 6 days Quantity: 1 {dose_pack} Refills: 0 Ordered: 17-Dec-2011 WINNIE Fortune Start: 17-Dec-2011 End: 23-Dec-2011 Status: Inactive 24 hr metoprolol succinate 25 mg extended release oral tablet (20 sources) beta-Adrenergic Amna Start: 09-20-2023 End: 11-10-2024 take 1 tablet by mouth once daily Metoprolol Succinate 25 mg tablet extended release 24 hr Discontinued 25 mg PO DAILY 90 February 29, 2024 10:52am November 10, 2024 8:22am On Hold: completed Start: 09-16-2023 End: 09-20-2023 take 1 tablet by mouth once daily Metoprolol Succinate 50 mg tablet extended release 24 hr Discontinued 50 mg PO DAILY 30 September 16, 2023 12:00am September 20, 2023 7:53am Start: 05-20-2023 End: 09-16-2023 take 1 capsule by mouth every twenty-four hours at bedtime Metoprolol Succinate 50 mg capsule,sprinkle,ER 24hr Discontinued 50 mg PO AT BEDTIME 30 September 16, 2023 3:43pm September 16, 2023 4:43pm Start: 05-20-2023 take 50 mg by mouth once daily Metoprolol Succinate Active 50 MG PO DAILY May 20, 2023 12:00am Start: 06-19-2022 take 1 tablet by ifrah th once daily Metoprolol Succinate ER 50 MG Oral Tablet Extended Release 24 Hour ; 1 (one) Tablet daily for 0 days Quantity: 90 {Tablet} Refills: 3 Ordered: 19-Jun-2022 MD Denzel Rodriguez Start: 19-Jun-2022 Comments: Mail order. Comment on above: Mail order. mometasone furoate 1 mg/ml topical cream (5 sources) Corticosteroid Start: 1 End: 3 MOMETASONE FUROATE, 0.1% (External Cream) ; 1 application(s) daily for 0 days Quantity: 30 {gram(s)} Refills: 2 Ordered: 05-Jul-2012 WINNIE Gentile Start: 14-Oct-2010 End: 05-Jul-2012 Status: Inactive 24 hr niacin 500 mg extended release oral tablet (5 sources) Nicotinic Acid Start: 2 End: 5 take 1 tablet by mouth once daily NIASPAN, 500MG (Oral Tablet Extended Release) ; 1 Tablet ER qd for 0 days Quantity: 90 {Tablet_ER} Refills: 3 Ordered: 26-Feb-2015 WINNIE Gentile Start: 05-May-2011 End: 26-Feb-2015 Status: Inactive omeprazole 20 mg delayed release oral tablet (20 sources) Proton Pump Inhibitor Start: 4 End: 5 take 1 tablet by mouth at bedtime Omeprazole 20 mg tablet,delayed release (DR/EC) Discontinued 20 mg PO AT BEDTIME 90 1 December 07, 2023 3:57pm May 24, 2024 9:02am Start: 06-19-2022 take 1 capsule by [facility] once daily Omeprazole 20 MG Oral Capsule Delayed Release ; 1 (one) Capsule daily for 0 days Quantity: 90 {Capsule} Refills: 3 Ordered: 19-Jun-2022 MD Denzel Rodriguez Start: 19-Jun-2022 Comments: Mail order. Comment on above: Mail order. predniSONE 10 mg oral tablet (5 sources) Start: 018 End: take 2 tablets by mouth twice daily PredniSONE 10 MG Oral Tablet ; 2 (two) Tablet twice daily for 7 days Quantity: 28 {Tablet} Refills: 0 Ordered: 06-Jan-2018 MD Neel Domingo Start: 06-Jan-2018 End: 13-Jan-2018 Status: Inactive sildenafil 100 mg oral tablet (5 sources) Phosphodiesterase 5 Inhibitor Start: End: take 1 tablet by mouth every hour Viagra 100 MG Oral Tablet ; 1 (one) Tablet one hour prior to intercourse for 0 days Quantity: 3 {Tablet} Refills: 1 Ordered: 04-Jul-2021 NIKA Starr Start: 26-Feb-2015 End: 04-Jul-2021 Status: Inactive tamsulosin hydrochloride 0.4 mg oral capsule (5 sources) alpha-Adrenergic Amna Start: End: take 1 capsule by mouth twice daily Flomax 0.4 MG Oral Capsule ; 1 (one) Capsule Capsule two times daily for 0 days Quantity: 30 {Capsule} Refills: 0 Ordered: 21-Dec-2018 WINNIE Vera Start: 22-Feb-2017 End: 21-Dec-2018 Status: Inactive terbinafine 250 mg oral tablet (5 sources) Allylamine Antifungal Start: End: take 1 tablet by mouth once daily LAMISIL, 250MG (Oral Tablet) ; 1 Tablet daily for 0 days Quantity: 21 {Tablet} Refills: 0 Ordered: 05-Jul-2012 WINNIE Gentile Start: 12-Aug-2010 End: 05-Jul-2012 Status: Inactive traMADol hydrochloride 50 mg oral tablet (5 sources) Opioid Agonist Start: End: take 1 tablet by mouth every six hours as needed for pain traMADol HCl 50 MG Oral Tablet ; 1 (one) Tablet Tablet every 6 hours PRN for moderate to Severe Pain for 0 days Quantity: 30 {Tablet} Refills: 0 Ordered: 21-Dec-2018 WINNIE Vera Start: 22-Feb-2017 End: 21-Dec-2018 Status: Inactive Problems Active Problems Problem Classification Problem Date Documented Date Episodic/Chronic Abdominal hernia (15 sources) Unilateral inguinal hernia, without obstruction or gangrene, not specified as recurrent; 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: [Inguinal hernia, without mention of obstruction or gangrene, unilateral or unspecified (not specified as recurrent)] Onset: 04-07-2017 05-20-2023 Episodic Acute bronchitis (10 sources) Acute bronchitis 04-09-2016 Episodic Administrative/socia l admission (1 source) Persons encountering health services in other specified circumstances; 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: [Other reasons for seeking consultation] 05-20-2023 Episodic Allergic reactions (20 sources) Contact dermatitis; 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: [Unspecified contact dermatitis, unspecified cause] 04-09-2016 Episodic Calculus of urinary tract (20 sources) Calculus of ureter; 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: [Urolithiasis ] Onset: 04-07-2017 09-11-2022 Episodic Disorders of lipid metabolism (20 sources) Mixed hyperlipidemia; 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: [Mixed hyperlipidemia] Onset: 05-24-2024 05-20-2023 Chronic Comment on above: atorvastatin 20mg / CV Risk 12% Esophageal disorders (16 sources) Gastroesophageal reflux disease; 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: [Gastro-esophageal reflux disease without esophagitis] Onset: 05-24-2024 05-20-2023 Chronic Essential hypertension (20 sources) Essential (primary) hypertension; 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: [Unspecified essential hypertension] Onset: 04-07-2017 05-20-2023 Chronic Hyperplasia of prostate (1 source) Benign prostatic hyperplasia without lower urinary tract symptoms; 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: [BENIGN PROSTATIC HYPERPLASIA WITHOUT LOWER URINRY TRACT SYMP] Onset: 04-07-2017 Chronic Immunizations and screening for infectious disease (20 sources) Encounter for immunization; 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: [Need for prophylactic vaccination and inoculation against unspecified single disease] 05-20-2023 Episodic Nausea and vomiting (1 source) Vomiting, unspecified; 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: [VOMITING, UNSPECIFIED] Onset: 04-07-2017 Osteoarthritis (1 source) Unilateral primary osteoarthritis, right knee; 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: [Unilateral primary osteoarthritis, right knee] Onset: 02-10-2023 Chronic Other aftercare (15 sources) Long-term (current) use of other medications 04-09-2016 Episodic Other aftercare (15 sources) Taking high risk medication; 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: [Other [facility] (current) drug therapy] 08-08-2020 Episodic Other circulatory disease (1 source) Other specified peripheral vascular diseases; 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: [Other specified peripheral vascular diseases] Onset: 10-30-2024 Chronic Other connective tissue disease (1 source) Pain in right finger(s); 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: [Pain in limb] 05-20-2023 Episodic Other ear and sense organ disorders (10 sources) Otitis externa of left ear; 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: [Unspecified otitis externa, left ear] 09-11-2022 Chronic Other ear and sense organ disorders (20 sources) Impacted cerumen; 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: [Impacted cerumen] 09-11-2022 Episodic Comment on above: History of cerumen i mpactions Other ear and sense organ disorders (10 sources) Impacted cerumen in left ear; 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: [Impacted cerumen, left ear] 09-11-2022 Episodic Other inflammatory condition of skin (4 sources) Psoriasis; 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: [Psoriasis, unspecified] 05-20-2023 Chronic Other inflammatory condition of skin (2 sources) Psoriasis, unspecified; 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: [Other psoriasis] Onset: 05-24-2024 05-20-2023 Chronic Other injuries and conditions due to external causes (15 sources) Thumb injury ; 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: [Unspecified injury of unspecified wrist, hand and finger(s), initial encounter] 09-25-2022 Episodic Other lower respiratory disease (10 sources) Cough; 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: [Cough] 09-11-2022 Episodic Other male genital disorders (20 sources) Impotence of organic origin; 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: [Male erectile dysfunction, unspecified] 09-11-2022 Chronic Other nervous system disorders (2 sources) Other hereditary and idiopathic neuropathies; 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: [Other hereditary and idiopathic neuropathies] Onset: 10-30-2024 Chronic Other non-traumatic joint disorders (1 source) Pain in right knee; 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: [Pain in joint, lower leg] 05-20-2023 Episodic Other nutritional; endocrine; and metabolic disorders (15 sources) Disorder of carbohydrate metabolism; 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: [Other disorders of intestinal carbohydrate absorption] 09-11-2022 Chronic Other nutritional; endocrine; and metabolic disorders (2 sources) Overweight in adulthood with body mass index of 25 or more but less than 30; 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: [Body mass index (BMI) 26.0-26.9, adult] 09-11-2022 Episodic Other nutritional; endocrine; and metabolic disorders (8 sources) Body mass index 25-29 - overweight; 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: [Body mass index (BMI) 26.0-26.9, adult] 09-11-2022 Episodic Other screening for suspected conditions (not mental disorders or infectious disease) (20 sources) Screening status; 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: [Encounter for screening for malignant neoplasm of colon] 03-26-2020 Episodic Other upper respiratory infections (10 sources) Upper respiratory infection; 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: [Acute upper respiratory infection, unspecified] 12-21-2018 Episodic Residual codes; unclassified (1 source) Sleep disorder, unspecified; 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: [Sleep disturbance, unspecified] 05-20-2023 Episodic Residual codes; unclassified (1 source) Localized edema; 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: [Localized edema] Onset: 10-30-2024 Episodic Spondylosis; intervertebral disc disorders; other back problems (2 sources) Radiculopathy, lumbar region; 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: [Dorsalgia, unspecified] Onset: 11-10-2024 Episodic Sprains and strains (20 sources) Strain of neck muscle; 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: [Strain of muscle, fascia and tendon at neck level, initial encounter] Onset: 02-10-2023 09-11-2022 Episodic Unclassified (1 source) Unknown / UNK(Unknown) Onset: 03-04-2017 Unclassified (10 sources) Unspecified Diagnosis 04-09-2016 Unclassified (5 sources) Follow up for multiple chronic conditions - The patient is here for follow-up of hyperlipidemia and hypertension. The patient always takes the prescribed medications. No side effects noted (needs refills today). The patient has an active lifestyle but no regular exercise program. The patient's out of office blood pressure checks occur occasionally (runs about 120's/high 70's) and dietary compliance is fair often eating foods not normally recommended (tries to eat healthy, but does eat sweets). The patient states that there is no recent angina or dyspnea, there are no vision changes or weakness, weight has increased (2lbs since AVE) and headaches are rarely noted. Note for Multiple chronic conditions follow-up: Does have acid reflux, been taking OTC omeprazole 20mg that helps with his reflux. Would like to discuss getting a prescription for omeprazole sent to mail order. Was previously taking famotidine that would only help a little bit. He has been using omeprazole for 2-3 weeks and has found that it has greatly reduced his symptoms.Also requesting a refill of cyclobenzaprine that he takes as needed for chronic back pain. 07-04-2021 Unclassified (5 sources) [facility] Routine follow-up - The patient is here for follow-up of hypertension, hyperlipidemia and glucose intolerance . The patient always takes the prescribed medications. No side effects noted. The patient has low activity level and no regular program. The patient's out of office blood pressure checks occur rarely (very rarely) and dietary compliance is fairly good usually adhering to recommendations (he tries to go more tords healthy). The patient states that there is no recent angina or dyspnea, weight has decreased (down 1 lb) and headaches are rarely noted. 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 The course has been gradually worsening. The hand pain is characterized as a mild to moderate dull aching. The hand pain is described as being located in the thumb and base of thumb. The hand pain is aggravated by physical activity and work duties. The pain has been relieved by nothing (Patient has not tried any OTC medications at this time.). The symptoms have been associated with painful ROM and decreased ROM, but have not been associated with muscle cramps, muscle weakness, joint swelling, instability, popping/crepitus, warmth, erythema, fever, chills, difficulty with fine motor skills, difficulty with grasping or difficulty with pinching. There have been no previous diagnostic tests. There has been no previous evaluations. Note for Hand pain: pt was playing football with grandson and the football hit his thumb when he tried to catch the ballHe denies any bruising or swelling after the injury 09-11-2022 Unclassified (5 sources) Ear pain - The onset of the pain has been acute and has been occurring in a persistent pattern for 2 weeks. The course has been increasing. The pain is described as a moderate plugged (Patient reports a plugged feeling more than any pain). The pain is described as being located in the inner ear. The pain is felt in the left ear. There has been no associated chills, decreased hearing, fever, inability to 'pop' ear drum, non-purulent discharge from ear, purulent discharge from ear, sore throat, runny nose, cough, tinnitus or vertigo. Medical History does not include ear infections, seasonal allergies or recurrent sinusitis. Note for Ear pain: Patient has a history of cerumen impactions. 12-04-2021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 Normal 0-[address] [facility] Comment on above: Performed By: #### L 500.4100, L500.4050, L100.0100 #### [facility] [address] [place], [address] Erythrocyte distribution width (RBC) [Ratio] 13.6 % Normal 11.6-14.[address] [facility] Comment on above: Performed By: #### L 500.4100, L500.4050, L100.0100 #### [facility] [address] [place], [address] Hematocrit (Bld) [Volume fraction] 46.3 % Normal 40-[address] [facility] Comment on above: Performed By: #### L 500.4100, L500.4050, L100.0100 #### [facility] [address] [place], [address] Hemoglobin (Bld) [Mass/Vol] 15.5 g/dL Normal 13.0-16.[address] [facility] Comment on above: Performed By: #### L 500.4100, L500.4050, L100.0100 #### [facility] [address] [place], [address] IG% 0.200 Normal 0.0-0.[address] [facility] Comment on above: Result Comment: IG% - Immature Granulocytes (promyelocytes, myelocytes and metamyelocytes) > 1% indicates that a LEFT SHIFT is Present. Performed By: #### L 500.4100, L500.4050, L100.0100 #### [facility] [address] [place], [address] Lymphocytes/100 WBC (Bld) 29.6 % Normal 19-[address] [facility] Comment on above: Performed By: #### L 500.4100, L500.4050, L100.0100 #### [facility] [address] [place], [address] MCH (RBC) [Entitic mass] 28.5 pg Normal 27.0-32.[address] [facility] Comment on above: Performed By: #### L 500.4100, L500.4050, L100.0100 #### [facility] [address] [place], [address] MCHC (RBC) [Mass/Vol] 33.5 g/dL Normal 32-36 [facility] Comment on above: Performed By: #### L 500.4100, L500.4050, L100.0100 #### [facility] [address] [place], [address] MCV (RBC) [Entitic vol] 85.3 fL Normal 80-[address] [facility] Comment on above: Performed By: #### L 500.4100, L500.4050, L100.0100 #### [facility] [address] [place], [address] Monocytes/100 WBC (Bld) 11.2 % High 0-[address] [facility] Comment on above: Performed By: #### L 500.4100, L500.4050, L100.0100 #### [facility] [address] [place], [address] Neutrophils/100 WBC (Bld) 53.4 % Normal 47-[address] [facility] Comment on above: Performed By: #### L 500.4100, L500.4050, L100.0100 #### [facility] [address] [place], [address] Nucleated RBC (Bld) [#/Vol] 0 10*3/uL Normal 0-[address] [facility] Comment on above: Performed By: #### L 500.4100, L500.4050, L100.0100 #### [facility] [address] [place], [address] Platelet mean volume (Bld) [Entitic vol] 10.0 fL Normal 6.2-12.[address] [facility] Comment on above: Performed By: #### L 500.4100, L500.4050, L100.0100 #### [facility] [address] [place], [address] Platelets (Bld) [#/Vol] 224 10*3/uL Normal 150-[address] [facility] Comment on above: Performed By: #### L 500.4100, L500.4050, L100.0100 #### [facility] [address] [place], [address] RBC (Bld) [#/Vol] 5.43 10*6/uL Normal 4.6-6.2 [facility] Comment on above: Performed By: #### L 500.4100, L500.4050, L100.0100 #### [facility] [address] [place], [address] RDW SD 41.9 fl Normal 35.1-43.[address] [facility] Comment on above: Performed By: #### L 500.4100, L500.4050, L100.0100 #### [facility] [address] [place], [address] WBC (Bld) [#/Vol] 6.1 10*3/uL Normal 4.4-11.0 [facility] Comment on above: Performed By: #### L 500.4100, L500.4050, L100.0100 #### [facility] [address] [place], [address] Comprehensive Metabolic Prof ndon 05-24-2024 Albumin [Mass/Vol] 3.7 g/dL Normal 3.2-5.0 [facility] Comment on above: Performed By: #### L 500.4100, L500.4050, L100.0100 #### [facility] [address] [place], [address] Albumin/Globulin [Mass ratio] 1.0 {ratio} Normal 0.9-2.[address] [facility] Comment on above: Performed By: #### L 500.4100, L500.4050, L100.0100 #### [facility] [address] [place], [address] ALK P 88 U/L Normal 45-[address] [facility] Comment on above: Performed By: #### L 500.4100, L500.4050, L100.0100 #### [facility] [address] [place], [address] ALT [Catalytic activity/Vol] 36 U/L Normal 16-[address] [facility] Comment on above: Performed By: #### L 500.4100, L500.4050, L100.0100 #### [facility] [address] [place], [address] AST [Catalytic activity/Vol] 28 U/L Normal 15-[address] [facility] Comment on above: Performed By: #### L 500.4100, L500.4050, L100.0100 #### [facility] [address] [place], [address] Bilirubin [Mass/Vol] 1.00 mg/dL Normal 0.20-1.00 [facility] Comment on above: Result Comment: For patients on eltrombopag therapy, use of Dimension [place] TBIL is not recommended. Performed By: #### L 500.4100, L500.4050, L100.0100 #### [facility] [address] [place], [address] BUN/CRE 19.4 RATIO Normal 10-[address] [facility] Comment on above: Performed By: #### L 500.4100, L500.4050, L100.0100 #### [facility] [address] [place], [address] CA,Total 9.8 mg/dL Normal 8.5-10.[address] [facility] Comment on above: Performed By: #### L 500.4100, L500.4050, L100.0100 #### [facility] [address] [place], [address] Chloride [Moles/Vol] 106 mmol/L Normal 98-107 [facility] Comment on above: Performed By: #### L 500.4100, L500.4050, L100.0100 #### [facility] [address] [place], [address] CO2 [Moles/Vol] 25.0 mmol/L Normal 21.0-32.[address] [facility] Comment on above: Performed By: #### L 500.4100, L500.4050, L100.0100 #### [facility] [address] [place], [address] Creatinine [Mass/Vol] 0.93 mg/dL Normal 0.70-1.30 [facility] Comment on above: Result Comment: The validity of the calculated GFR GFRAA in patients over 70 years has not been determined. Clinical correlation is essential. Performed By: #### L 500.4100, L500.4050, L100.0100 #### [facility] [address] [place], [address] EST GFR - AA 102 mL/min Normal >[address] [facility] Comment on above: Result Comment: Afri can Guatemalan GFR Calc Performed By: #### L 500.4100, L500.4050, L100.0100 #### [facility] [address] [place], [address] GAP 7 Normal 5-[address] [facility] Comment on above: Performed By: #### L 500.4100, L500.4050, L100.0100 #### [facility] [address] [place], [address] GFR/1.73 sq M.predicted among non-blacks MDRD (S/P/Bld) [Vol rate/Area] 84 mL/min/{1.73_m2} Normal >[address] [facility] Comment on above: Result Comment: Non- GFR Calc Performed By: #### L 500.4100, L500.4050, L100.0100 #### [facility] [address] [place], [address] Globulin (S) [Mass/Vol] 3.6 g/dL Normal 2.2-4.[address] [facility] Comment on above: Performed By: #### L 500.4100, L500.4050, L100.0100 #### [facility] [address] [place], [address] Glucose [Mass/Vol] 103 mg/dL Normal 74-106 [facility] Comment on above: Result Comment: Fast ing Glucose result from 100 to 125 mg/dL suggests IMPAIRED HOMEOSTASIS per A.D.A. criteria. Performed By: #### L 500.4100, L500.4050, L100.0100 #### [facility] [address] [place], [address] Potassium [Moles/Vol] 3.9 mmol/L Normal 3.5-5.1 [facility] Comment on above: Performed By: #### L 500.4100, L500.4050, L100.0100 #### [facility] [address] [place], [address] Sodium [Moles/Vol] 138 mmol/L Normal 136-145 [facility] Comment on above: Performed By: #### L 500.4100, L500.4050, L100.0100 #### [facility] [address] [place], [address] T PROT 7.3 g/dL Normal 6.4-8.[address] [facility] Comment on above: Performed By: #### L 500.4100, L500.4050, L100.0100 #### [facility] [address] [place], [address] Urea nitrogen [Mass/Vol] 18 mg/dL Normal 7-[address] [facility] Comment on above: Performed By: #### L 500.4100, L500.4050, L100.0100 #### [facility] [address] [place], [address] Lipid Profileon 05-24-2024 Cholesterol [Mass/Vol] 123 mg/dL Normal [address] [facility] Comment on above: Result Comment: <200 mg/dL Desirable 200-240 mg/dL Borderline >240 mg/dL High Risk Performed By: #### L 500.4100, L500.4050, L100.0100 #### [facility] [address] [place], [address] Cholesterol in HDL [Mass/Vol] 45 mg/dL Normal [facility] Comment on above: Result Comment: The drugs N-Acetylcysteine and Metamizole may falsely depress this assay. Reference Range HDL <40 mg/dL Low HDL Cholesterol HDL >or= 60 mg/dL High HDL Cholesterol Performed By: #### L 500.4100, L500.4050, L100.0100 #### [facility] [address] [place], [address] Cholesterol in LDL [Mass/Vol] 59 mg/dL Normal 0-[address] [facility] Comment on above: Performed By: #### L 500.4100, L500.4050, L100.0100 #### [facility] [address] [place], [address] Cholesterol in VLDL [Mass/Vol] 19 mg/dL Normal 5-[address] [facility] Comment on above: Performed By: #### L 500.4100, L500.4050, L100.0100 #### [facility] [address] [place], [address] Triglyceride [Mass/Vol] 97 mg/dL Normal [facility] Comment on above: Result Comment: The drugs N-Acetylcysteine and Metamizole may falsely depress this assay. Serum Triglycerides Reference Interval Normal <150 mg/dL Borderline high 150 - 199 mg/dL High 200 - 499 mg/dL Very High > or = 500 mg/dL Performed By: #### L 500.4100, L500.4050, L100.0100 #### [facility] [address] [place], [address] Internal Medicine Office Vis iton 04-27-2024 Internal Medicine Office Visit [facility] [address] [place] [address] [place] [address] OFFICE VISIT Date of Service: 05/24/24 MR#: [id number] Acct: [id number] Name: MARTIN GARCIA Rep #: [id number] : 1950 Provider: Dr. Kerline dixon MD Age/Sex: 73/M Location: [facility] Status: Signed Intake Vital Signs 01/31/24 07:27 05/24/24 07:38 Height 5 ft 10 in 5 ft 10 in Weight: 174 lb 6 oz BMI 25.0 BP 122/78 H Blood Pressure Location Lt brachial Position Sitting Respiration 12 Pulse 69 Pulse Source Monitor Temp 97.1 F L Temp Source Temporal Pulse Oximetry (%) 97 Oxygen Delivery Method room air Intake Visit Reasons: 3 M FU Chief Complaint: discuss d/c bp meds Customer Operations Associate Required: No Accompanied by: Self Is patient in pain?: No Allergies No Known Allergies Allergy (Verified 05/24/24 07:40) Medications ???Medication ???Instructions ???Recorded ???Confirmed ???Type apremilast 30 mg tablet (Otezla) 30 mg PO BID 05/20/23 05/24/24 His tory atorvastatin 20 mg tablet 20 mg PO QHS #90 tabs 02/29/24 Rx metoprolol succinate 25 mg 25 mg PO DAILY #90 tabs 02/29/24 0 05/24/24 Rx tablet,extended release 24 hr Held on 05/24/24. Instructions: completed meloxicam 7.5 mg tablet 7.5 mg PO QHS #90 tabs 03/13/24 Rx omeprazole 20 mg tablet,delayed 20 mg PO QHS #90 tabs 05/24/24 Rx release Have you fallen in the past year?: No PFSH Medical History Osteoarthritis Neuropathy Murmur Cataract Gastric reflux Non-smoker Hypertension History of cardiac murmur as a child Kidney stones High blood triglycerides Cataracts, bilateral Arthritis Surgical History Hx of cataract surgery H/O toe surgery H/O lithotripsy Hx of Achilles tendon repair History of hernia surgery Family History Mother Cancer breast Father Myocardial infarction, Onset Age: 48 Daughter Neuromyelitis optica Son Diabetes Social History household members: spouse and children housing: house current occupational status: employed current occupation: [employer] Smoking Status: Never smoker Electronic Cigarette Use: not used alcohol intake: current alcohol intake frequency: holidays/special occasions only substance use type: does not use what type of physical activity do you participate in: none fariha/judaism: Adventist seatbelt use: always do you feel safe at home: Yes HPI HPI Chief Complaint: discuss d/c bp meds Details: MARTIN GARCIA, is a 73 M who presents to the office today for a follow up. He is up to date on his routine blood work and screening. He hasn't yet gotten his flu shot, but will get it at work. He doesn't smoke and does need refills. He reports he is eating somewhat healthy and staying active. He does check his blood pressure at home and has provided some home readings. They have ranged from 118-135/73-85, with most in the 120s/70s. He takes his medication as prescribed without problems. At his last office visit, the metoprolol dose was cut back to 12.5mg daily. He hasn't noticed any problems with the smaller dose nor has his blood pressure increased. He is interested in stopping the medication, if possible. He does watch his salt intake somewhat. He denies any problems with his cholesterol medication. His GERD has been well controlled on his omeprazole. The patient has a history of psoriasis and follows with dermatology. He is on otezla and reports that helps quite a bit. He sees them annually. He continues to take meloxicam for his joints and reports that has been helpful. He still gets some pain in his thumbs, but it is better than it was. He denies any pain today. He has no other questions or concerns at this time. ROS Const Constitutional: No body ache, excessive sweating, fatigue, fever(s), frequent falls, headache(s), snoring, weakness, weight change, sleep problems or change in appetite Eyes Eyes: No blurry vision, change in vision, eye pain or Light sensitivity ENT ENT: No abnormal hearing, ear or mastoid pain, tinnitus, nasal congestion, headache(s), neck pain or sore throat Resp Respiratory: No cough, shortness of breath, snoring or wheezing Cardio Cardiology: No chest pain at rest, chest pain with exertion, excessive sweating, shortness of breath, dyspnea on exertion, lightheadedness, orthopnea, palpitations or other (no leg swelling) Gastro GI: No abdominal pain, change in bowel habits, constipation, cramping, diarrhea, nausea/dyspepsia or vomiting Genitourinary Male: No difficulty urinating, burning (more content not included)... Normal [facility] Internal Medicine Office Vis jose 01-27-2024 Internal Medicine Office Visit [facility] [address] [place] [address] [place] [address] OFFICE VISIT Date of Service: 01/31/24 MR#: [id number] Acct: [id number] Name: MARTIN GARCIA Rep #: [id number] : 1950 Provider: Dr. Kerline dixon MD Age/Sex: 73/M Location: [facility] Status: Signed Intake Vital Signs 09/20/23 07:35 01/31/24 07:27 Height 5 ft 10 in 5 ft 10 in Weight: 176 lb BMI 25.2 BP 110/66 Blood Pressure Location Lt brachial Position Sitting Respiration 14 Pulse 75 Pulse Source Monitor Temp 97.1 F L Temp Source Temporal Pulse Oximetry (%) 98 Oxygen Delivery Method room air Intake Visit Reasons: 4 M FU Customer Operations Associate Required: No Is patient in pain?: No Allergies No Known Allergies Allergy (Verified 01/31/24 07:22) Medications ???Medication ???Instructions ???Recorded ???Confirmed ???Type apremilast 30 mg tablet (Otezla) 30 mg PO BID 05/20/23 01/31/24 History atorvastatin 20 mg tablet 20 mg PO QHS #90 tabs 09/20/23 01/31/24 Rx meloxicam 7.5 mg tablet 7.5 mg PO QHS #90 tabs 09/20/23 01/31/24 Rx metoprolol succinate 25 mg 25 mg PO DAILY #90 tabs 09/20/23 01/31/24 Rx tablet,extended release 24 hr omeprazole 20 mg tablet,delayed 20 mg PO QHS #90 tabs 12/07/23 01/31/24 Rx release Have you fallen in the past year?: No Nurse's Note: Is ready to wean off metorpol states he is having no side effects and feeling good. Declines flu shot will receive at work. [facility] Medical History Osteoarthritis Neuropathy Murmur Cataract Gastric reflux Non-smoker Hypertension History of cardiac murmur as a child Kidney stones High blood triglycerides Cataracts, bilateral Arthritis Surgical History Hx of cataract surgery H/O toe surgery H/O lithotripsy Hx of Achilles tendon repair History of hernia surgery Family History Mother Cancer breast Father Myocardial infarction, Onset Age: 48 Daughter Neuromyelitis optica Son Diabetes Social History household members: spouse and children housing: house current occupational status: employed current occupation: [employer] Smoking Status: Never smoker Electronic Cigarette Use: not used alcohol intake: current alcohol intake frequency: holidays/special occasions only substance use type: does not use what type of physical activity do you participate in: none fariha/judaism: Adventist seatbelt use: always do you feel safe at home: Yes HPI HPI Details: MARTIN GARCIA, is a 73 M who presents to the office today for a follow up. He is up to date on his routine blood work and screening. He is going to get his flu shot at work. He doesn't smoke and does not need refills. He reports he is eating somewhat healthy and staying active. He doesn't check his blood pressure at home. He takes his medication as prescribed without problems. At his last office visit, the metoprolol dose was cut back. He hasn't noticed any problems with the smaller dose. He did initially monitor his blood pressure after cutting back and it remained well controlled in the 110-120s/60-80s. He does not watch his salt intake. He denies any problems with his cholesterol medication. His GERD has been well controlled on his omeprazole. The patient has a history of psoriasis and follows with dermatology. He is on otezla and reports that helps quite a bit. He sees them annually. He reports his hernia has healed up. He reports he had to get it drained a couple of times, but hasn't had any ongoing problems with it. He continues to take meloxicam for his joints and reports that has been helpful. He denies any pain today. He has no other questions or concerns at this time. ROS Const Constitutional: Positive for weight change (3 pound weight loss); No body ache, chills, excessive sweating, fatigue, fever(s), frequent falls, headache(s), snoring, weakness, sleep problems or change in appetite Eyes Eyes: No blurry vision, change in vision, eye pain or Light sensitivity ENT ENT: No abnormal hearing, ear or mastoid pain, tinnitus, nasal congestion, headache(s), neck pain or sore throat Resp Respiratory: No cough, shortness of breath, snoring or wheezing Cardio Cardiology: No chest pain at rest, chest pain with exertion, excessive sweating, shortness of breath, dyspnea on exertion, lightheadedness, orthopnea, palpitations or other (no leg swelling) Gastro GI: No abdominal pain, change in bowel habits, constipation, cramping, diarrhea, nausea/dyspepsia or vomiting Genitourinary Male: No difficul (more content not included)... Normal [facility] Absolute lymphocyte countOrd ered By: Kerline Craven on 05-20-2023 Lymphocytes Auto (Unsp spec) [#/Vol] 2.48 10*3/uL 0.83-4.[address] [facility] Automated lymphocyte count a s percentage of total leukocytesOrdered By: Kerline Craven on 05-20-2023 Lymphocytes/100 WBC Auto (Unsp spec) 33.6 % 19-[address] [facility] Basophil percentageOrdered B y: Kerline Craven on 05-20-2023 Basophils/100 WBC (Bld) 0.9 % 0-[address] [facility] Bilirubin [Mass/Vol] 0.90 mg/dL 0.20-1.00 [facility] Comment on above: For patients on eltr ombopag therapy, use of Dimension [place] TBIL is not recommended. Chloride [Moles/Vol] 110 mmol/L 98-107 [facility] Cholesterol [Mass/Vol] 131 mg/dL <[address] [facility] Comment on above: <200 mg/dL Desirable 200-240 mg/dL Borderline >240 mg/dL High Risk Eosinophils/100 WBC (Bld) 6.5 % 0-[address] [facility] Glucose [Mass/Vol] 103 mg/dL 74-106 [facility] Comment on above: Fasting Glucose resu lt from 100 to 125 mg/dL suggests IMPAIRED HOMEOSTASIS per A.D.A. criteria. Hemoglobin (Bld) [Mass/Vol] 15.9 g/dL 13.0-16.[address] [facility] Monocytes/100 WBC (Bld) 10.2 % 0-[address] [facility] Neutrophils (Bld) [#/Vol] 3.6 10*3/uL 2.0-7.[address] [facility] Neutrophils/100 WBC (Bld) 48.7 % 47-[address] [facility] Potassium [Moles/Vol] 4.3 mmol/L 3.5-5.1 [facility] Protein [Mass/Vol] 7.5 g/dL 6.4-8.2 [facility] Sodium [Moles/Vol] 142 mmol/L 136-145 [facility] Triglyceride [Mass/Vol] 91 mg/dL <[address] [facility] Comment on above: The drugs N-Acetylcy steine and Metamizole may falsely depress this assay.Serum Triglycerides Reference Interval Normal <150 mg/dL Borderline high 150 - 199 mg/dL High 200 - 499 mg/dL Very High > or = 500 mg/dL WBC (Bld) [#/Vol] 7.4 10*3/uL 4.4-11.0 [facility] Determination of erythrocyte mean corpuscular volume (MCV)Ordered By: Kerline Craven on 05-20-2023 MCV (RBC) [Entitic vol] 86.1 fL 80-[address] [facility] Erythrocyte distribution wid th ratioOrdered By: Kerlinerubén Craven on 05-20-2023 Erythrocyte distribution width (RBC) [Ratio] 13.2 % 11.6-14.[address] [facility] Erythrocyte distribution wid th standard deviationOrdered By: Kerlinerubén Craven on 05-20-2023 Erythrocyte distribution width (RBC) [Entitic vol] 41.4 fL 35.1-43.[address] [facility] Hematocrit Auto (Bld) [Volum e fraction]Ordered By: Kerline Craven on 05-20-2023 Hematocrit (Bld) [Volume fraction] 49.7 % 40-[address] [facility] Immature granulocytes/100 WB C Auto (Bld)Ordered By: Kerlinejerome Craven on 05-20-2023 Immature granulocytes/100 WBC (Bld) 0.100 % 0.0-0.[address] [facility] Comment on above: IG% - Immature Granu locytes (promyelocytes, myelocytes and metamyelocytes) > 1% indicates that a LEFT SHIFT is Present. Laboratory - Chemistry and C hemistry - challengeOrdered By: Kerline Craven on 05-20-2023 Albumin/Globulin [Mass ratio] 1.0 {ratio} 0.9-2.[address] [facility] ALP [Catalytic activity/Vol] 116 U/L 45-[address] [facility] ALT [Catalytic activity/Vol] 30 U/L 16-[address] [facility] Cholesterol in HDL [Mass/Vol] 39 mg/dL >[address] [facility] Comment on above: The drugs N-Acetylcy steine and Metamizole may falsely depress this assay. Reference Range HDL <40 mg/dL Low HDL Cholesterol HDL >or= 60 mg/dL High HDL Cholesterol Cholesterol in LDL [Mass/Vol] 74 mg/dL 0-[address] [facility] CO2 [Moles/Vol] 29.0 mmol/L 21.0-32.[address] [facility] Globulin (S) [Mass/Vol] 3.7 g/dL 2.2-4.[address] [facility] Urea nitrogen/Creatinine [Mass ratio] 23.2 mg/mg 10-[address] [facility] Laboratory - Hematology and Cell countsOrdered By: Kerline Craven on 05-20-2023 MCH (RBC) [Entitic mass] 27.6 pg 27.0-32.[address] [facility] MCHC (RBC) [Mass/Vol] 32.0 g/dL 32-36 [facility] Nucleated RBC/100 WBC (Bld) [Ratio] 0 % 0-[address] [facility] Platelet mean volume (Bld) [Entitic vol] 9.6 fL 6.2-12.[address] [facility] Platelets (Bld) [#/Vol] 237 10*3/uL 150-[address] [facility] No Panel InformationOrdered By: Kerline Craven on 05-20-2023 Estimated GFR (MDRD) Amer 95 mL/min >[address] [facility] Comment on above: GFR Calc Estimated GFR (MDRD) Non-Af Amer 79 mL/min >[address] [facility] Comment on above: Non- GFR Calc VLDL Cholesterol 18 mg/dL 5-[address] [facility] RBC Auto (Bld) [#/Vol]Ordere d By: Kerline Craven on 05-20-2023 RBC (Bld) [#/Vol] 5.77 10*6/uL 4.6-6.2 [facility] Serum or plasma calcium mao urement (mass/volume)Ordered By: Kerline Craven on 05-20-2023 Calcium [Mass/Vol] 9.4 mg/dL 8.5-10.1 [facility] Serum or plasma creatinine m easurement (mass/volume)Ordered By: Kerline Craven on 05-20-2023 Creatinine [Mass/Vol] 0.99 mg/dL 0.70-1.30 [facility] Comment on above: The validity of the calculated GFR & GFRAA in patients over 70 years has not been determined. Clinical correlation is essential. Serum or plasma urea nitroge n measurement (mass/volume)Ordered By: Kerline Craven on 05-20-2023 Urea nitrogen [Mass/Vol] 23 mg/dL 7-[address] [facility] Thin prep Papanicolaou smear with manual screeningOrdered By: Kerline Craven on 05-20-2023 Thin prep Papanicolaou smear with manual screening 3.8 g/dL 3.2-5.[address] [facility] Thin prep Papanicolaou smear with manual screening 21 U/L 15-[address] [facility] Thin prep Papanicolaou smear with manual screening 3 5-[address] [facility] EMERGENCY REPORTon 3 EMERGENCY REPORT [facility] EMERGENCY ROOM REPORT NAME ACCOUNT SEX AGE ADMIT DISCHARGE PT MED. RECORD# NUMBER DATE DATE TYPE JOSE [id number] Arie 72 12/01/22 12/01/22 3 MARTIN Sargent [id number] ROOM: ER DATE OF : 1950 DICTATING PHYSICIAN: Byron Freeman HISTORY OF PRESENT ILLNESS: The patient came in. DICTATION ENDS HERE Dictated By: Byron Freeman DO 12/04/22 08:46 JOB #: [id number] Transcribed By: am 12/04/22 08:51 Electronically signed by: AFRICA Freeman DO 12/08/22 07:19 Page 1 of 1 MARTIN GARCIA Emergency Room Report Normal [facility] EMERGENCY REPORTon 3 EMERGENCY REPORT [facility] EMERGENCY ROOM REPORT NAME ACCOUNT SEX AGE ADMIT DISCHARGE PT MED. RECORD# NUMBER DATE DATE TYPE JOSE [id number] Arie 72 12/01/22 12/01/22 3 MARTIN Sargent [id number] ROOM: ER DATE OF : 1950 DICTATING PHYSICIAN: Byron Freeman HISTORY OF PRESENT ILLNESS: The patient complained of right knee pain. This weekend, he had a trailer that got loose. When it got loose, he started chasing the trailer. When he did, he is not really sure exactly what he did with his right knee, whether he hyperextended it or fell or twisted it, but he has been having pain. The pain has gotten worse over the last couple of days. It is an intermittent pain. If he is not doing anything, then he does not have any pain. However, when he stand or walks he gets a sharp, tight pain mainly in the medial aspect of the right knee. He denies any neck pain. No chest pain or shortness of breath. He denies any nausea or vomiting. PAST MEDICAL HISTORY: He does have a history of hypertension, hyperlipidemia, and psoriasis. PAST SURGICAL HISTORY: He had a hernia repair and cataract surgery. He had an Achilles tendon rupture which was repaired by Dr. Quach. SOCIAL HISTORY: He does not smoke. He rarely drinks alcohol. REVIEW OF SYSTEMS: Ten systems were reviewed and were negative except as mentioned above. PHYSICAL EXAMINATION: VITAL SIGNS: He is afebrile. Pulse is 65, respirations 16, blood pressure 137/82, and pulse oximetry 94% on room air. HEENT: Head is normocephalic, atraumatic. Eyes: Pupils are equal, round and reactive to light. Extraocular muscles are intact. Nares are patent. Throat has adequate oral moisture. Uvula is midline. NECK: Neck is supple without petechiae or rash. HEART: Heart rate is regular without murmur. S1 is equal to S2. No S3 or S4 appreciated. LUNGS: Lungs are clear to auscultation bilaterally. No rales, rhonchi or retractions. ABDOMEN: Abdomen is soft, nontender and nondistended. SKIN: Skin is warm and dry. EXTREMITIES: His right knee is swollen. No increased warmth. There are no abrasions. He does have limited range of motion secondary to pain and swelling. He has no ankle tenderness. No hip tenderness. He is neurovascularly intact. EMERGENCY DEPARTMENT COURSE AND TREATMENT: He does have crutches at home. We placed him in an [place] wrap. I did discuss this with Dr. Quach. The patient will be discharged to home. We did discuss putting a needle in it and draining some of Page 1 of 2 MARTIN GARCIA Emergency Room Report MARTIN GARCIA : 1950 the fluid off of the knee, but Dr. Quach wanted to see him and evaluate this himself. DIAGNOSIS: Acute right knee strain and swelling - possible internal derangement. Dictated By: Byron Freeman DO 12/04/22 08:55 JOB #: [id number] Transcribed By: patricia 12/04/22 09:17 Electronically signed by: AFRICA Freeman DO 12/05/22 11:18 Page 2 of 2 MARTIN GARCIA Emergency Room Report Normal [facility] KNEE COMPLETE RT MIN 4 VIEWS on 12-01-2022 KNEE COMPLETE RT MIN 4 VIEWS [place] [id number] Patient: MARTIN GARCIA. Phone#: : [phone] Age: 72 Gender: M Pt. Type: ER Account: [id number] Location: 052 Ordering: BYRON FREEMAN Exam Date: 12/01/2022/7:49 Family Phys: DENZEL RODRIGUEZ Charge Code: [id number] Physician: Guthrie Order #: [id number] Dose#: PROCEDURE: X-RAY KNEE RT COMPLETE 4 VIEWS COMPARISON: None. INDICATIONS: Trauma. FINDINGS: BONES: Mild degenerative changes of the knee are present. SOFT TISSUES: Negative. No visible soft tissue swelling. EFFUSION: Small suprapatellar joint effusion is present. OTHER: Negative. CONCLUSION: 1. There is no evidence of acute abnormality. Dictated by: Sandee Orellana MD on 12/01/2022 at 8:33 Approved by: Sandee Orellana MD on 12/01/2022 at 8:33 Normal [facility] HAND RT MIN 3 VIEWSon 2022 HAND RT MIN [address] [address] Patient: MARTIN GARCIA. Phone#: : [phone] Age: 72 Gender: M Pt. Type: Out Account: [id number] Location: 052 Ordering: JOSE GARCIA Exam Date: 09/11/2022/10:48 Family Phys: Charge Code: [id number] Physician: Guthrie Order #: [id number] Dose#: PROCEDURE: X-RAY HAND RT COMPLETE MIN 3 VIEWS COMPARISON: None. INDICATIONS: Injury. FINDINGS: BONES: No fracture or dislocation. Mild degenerative spurring at the 1st interphalangeal articulation, 2nd DIP, 3rd PIP and 5th PIP articulations. Degenerative spurring at the trapizium. SOFT TISSUES: Negative. No visible soft tissue swelling. EFFUSION: None visible. OTHER: Negative. CONCLUSION: 1. No acute osseous abnormality 2. Polyarticular mild degenerative spurring. Dictated by: Cele Mitchell MD on 09/11/2022 at 15:53 Approved by: Cele Mitchell MD on 09/11/2022 at 15:57 Normal [facility] 08-09-2020 ALT [Catalytic activity/Vol] 23 U/L Normal 9-46 [facility] Comment on above: Performed By: #### 4 83, 3260, 823 #### [facility] [place] [address] [employer] Shop Supervisor: Donte Bhakta MD GLUCOSEon 08-09-2020 Glucose [Mass/Vol] 102 mg/dL High 65-99 [facility] Comment on above: Result Comment: Fasting reference interval For someone without known diabetes, a glucose value between 100 and 125 mg/dL is consistent with prediabetes and should be confirmed with a follow-up test. Performed By: #### 4 83, 8760, 823 #### [facility] [place] [address] [employer] Supervisor: Donte Bhakta MD LIPID PANEL, STANDARD Cholesterol [Mass/Vol] 125 mg/dL Normal <200 [facility] Comment on above: Performed By: #### 4 83, 7600, 823 #### [facility] [place] [address] [employer] Supervisor: Donte Bhakta MD Cholesterol in HDL [Mass/Vol] 41 mg/dL Normal > OR = 40 [facility] Comment on above: Performed By: #### 4 83, 7600, 823 #### [facility] [address], [address] [place] [address] [employer] Supervisor: Donte Bhakta MD Cholesterol in LDL [Mass/Vol] 66 mg/dL Normal [facility] Comment on above: Result Comment: Refe rence range: <100 Desirable range <100 mg/dL for primary prevention; <70 mg/dL for patients with CHD or diabetic patients with > or = 2 CHD risk factors. LDL-C is now calculated using the Rajani calculation, which is a validated novel method providing better accuracy than the Friedewald equation in the estimation of LDL-C. Eb SS et al. SINAN. 2013;310(12): 7928-2217 (http://education.[employer]/faq/CWG647) Performed By: #### 4 , 7600, 823 #### [facility] [address], [address] [place] [address] [employer] Supervisor: Donte Bhakat MD Cholesterol.total/Cho lesterol in HDL [Mass ratio] 3.0 {ratio} Normal <5.0 [facility] Comment on above: Performed By: #### 4 , 0, 823 #### [facility] [place] [address] [employer] Supervisor: Donte Bhakta MD NON HDL CHOLESTEROL 84 mg/dL (calc) Normal <130 [facility] Comment on above: Result Comment: For patients with diabetes plus 1 major ASCVD risk factor, treating to a non-HDL-C goal of <100 mg/dL (LDL-C of <70 mg/dL) is considered a therapeutic option. Performed By: #### 4 , 7600, 823 #### [facility] [place] [address] [employer] Supervisor: Donte Bhakta MD Triglyceride [Mass/Vol] 93 mg/dL Normal <150 [facility] Comment on above: Performed By: #### 4 83, 7600, 823 #### [facility] [place] [address] [employer] Supervisor: Donte Bhakta MD Laboratory - Chemistry and C hemistry - challengeon 08-08-2020 ALT [Catalytic activity/Vol] 23 U/L Normal 9 - 46 U/L [facility]; [place] [employer] [facility] Cholesterol [Mass/Vol] 125 mg/dL Normal [facility]; [place] [employer] [facility] Cholesterol in HDL [Mass/Vol] 41 mg/dL Normal [facility]; [place] [employer] [facility] Cholesterol in LDL [Mass/Vol] 66 mg/dL Normal [facility]; [place] [facility] Glucose [Mass/Vol] 102 mg/dL Abnormal 65 - 99 mg/dL [facility]; [place] [facility] Triglyceride [Mass/Vol] 93 mg/dL Normal [facility]; [place] [facility] No Panel Informationon 08-08 CHOL/HDLC RATIO 3.0 Normal [facility]; [place] [facility] NON HDL CHOLESTEROL 84 Normal [facility]; [place] [employer] COMPREHENSIVE METABOLIC PANE [place] 04-09-2020 Albumin [Mass/Vol] 4.5 g/dL Normal 3.6-5.1 [facility] Comment on above: Performed By: #### 5 384, 496, 76852, 0230 #### [facility]-[address], [address] [place] [address] [employer] Supervisor: Donte Bhakta MD Albumin/Globulin [Mass ratio] 1.6 {ratio} Normal 1.0-2.5 [facility] Comment on above: Performed By: #### 5 363, 496, [address]686, 1950 #### [facility] , [address] [place], [place] [id number] [employer] Supervisor: Donte Bhakta MD ALP [Catalytic activity/Vol] 70 U/L Normal 35-144 [facility] Comment on above: Performed By: #### 5 363, 496, 12047, 3360 #### [facility]-[address], [address] [place] [address] [employer] Supervisor: Donte Bhakta MD ALT [Catalytic activity/Vol] 22 U/L Normal 9-46 [facility] Comment on above: Performed By: #### 5 363, 496, 90466, 7600 #### [facility]-[address], [address] [place] [address] [employer] Supervisor: Donte Bhakta MD AST [Catalytic activity/Vol] 18 U/L Normal 10-35 [facility] Comment on above: Performed By: #### 5 363, 496, 61005, 7600 #### [facility]-[address], [address] [place] [address] [employer] Supervisor: Donte Bhakta MD Bilirubin [Mass/Vol] 0.7 mg/dL Normal 0.2-1.2 [facility] Comment on above: Performed By: #### 5 363, 496, 83419, 7600 #### [facility]-[address], [address] [place] [address] [employer] Supervisor: Donte Bhakta MD BUN/CREATININE RATIO NOT APPLICABLE Normal 6-22 [facility] Comment on above: Performed By: #### 5 363, 496, 99919, 7600 #### [facility]-[address], [address] [place] [address] [employer] Supervisor: Donte Bhakta MD Calcium [Mass/Vol] 9.2 mg/dL Normal 8.6-10.3 [facility] Comment on above: Performed By: #### 5 363, 496, 62743, 7600 #### [facility]-[address], [address] [place] [address] [employer] Supervisor: Donte Bhakta MD Chloride [Moles/Vol] 104 mmol/L Normal 98-110 [facility] Comment on above: Performed By: #### 5 363, 496, 10044, 7600 #### [facility]-[address], [address] [place] [address] [employer] Supervisor: Donte Bhakta MD CO2 [Moles/Vol] 27 mmol/L Normal 20-32 [facility] Comment on above: Performed By: #### 5 363, 496, 59337, 7600 #### [facility]-[place] [address], [address] [place] [address] [employer] Supervisor: Donte Bhakta MD Creatinine [Mass/Vol] 1.09 mg/dL Normal 0.70-1.25 [facility] Comment on above: Result Comment: For patients >49 years of age, the reference limit for Creatinine is approximately 13% higher for people identified as -[place]atemalan. Performed By: #### 5 363, 496, 51465, 7600 #### [facility]-[address], [address] [place] [address] [employer] Supervisor: Donte Bhakta MD eGFR NON-AFR. BANGLADESHI 69 mL/min/1.73m2 Normal > OR = 60 [facility] Comment on above: Performed By: #### 5 363, 496, 98831, 7600 #### [facility]-[address], [address] [place] [address] [employer] Supervisor: Donte Bhakta MD GFR/1.73 sq M.predicted among blacks MDRD (S/P/Bld) [Vol rate/Area] 80 mL/min/{1.73_m2} Normal > OR = 60 [facility] Comment on above: Performed By: #### 5 363, 496, 14480, 7600 #### [facility]-[address], [address] [place] [address] [employer] Supervisor: Donte Bhakta MD Globulin (S) [Mass/Vol] 2.8 g/dL Normal 1.9-3.7 [facility] Comment on above: Performed By: #### 5 363, 496, 97184, 7600 #### [facility]-[address], [address] [place] [address] [employer] Supervisor: Donte Bhakta MD Glucose [Mass/Vol] 96 mg/dL Normal 65-99 [facility] Comment on above: Result Comment: Fasting reference interval Performed By: #### 5 363, 496, 74114, 7600 #### [facility]-[address], [address] [place] [address] [employer] Supervisor: Donte Bhakta MD Potassium [Moles/Vol] 4.5 mmol/L Normal 3.5-5.3 [facility] Comment on above: Performed By: #### 5 363, 496, 47620, 7600 #### [facility] , [address] [place] [address] [employer] Supervisor: Donte Bhakta MD Protein [Mass/Vol] 7.3 g/dL Normal 6.1-8.1 [facility] Comment on above: Performed By: #### 5 363, 496, 43232, 7600 #### [facility]-[place] [address] [address] , [address] [place] [address] [employer] Supervisor: Donte Bhakta MD Sodium [Moles/Vol] 138 mmol/L Normal 135-146 [facility] Comment on above: Performed By: #### 5 363, 496, 72285, 7600 #### [facility]-[address], [address] [place] [address] [employer] Supervisor: Donte Bhakta MD Urea nitrogen [Mass/Vol] 25 mg/dL Normal 7-25 [facility] Comment on above: Performed By: #### 5 363, 496, 04020, 7600 #### [facility]-[address], [address] [place] [address] [employer] Supervisor: Donte Bhakta MD HEMOGLOBIN A1con 04-09-2020 HEMOGLOBIN A1c 5.7 % of total Hgb High <5.7 [facility] Comment on above: Result Comment: For someone without known diabetes, a hemoglobin A1c value between 5.7% and 6.4% is consistent with prediabetes and should be confirmed with a follow-up test. For someone with known diabetes, a value <7% indicates that their diabetes is well controlled. A1c targets should be individualized based on duration of diabetes, age, comorbid conditions, and other considerations. This assay result is consistent with an increased risk of diabetes. Currently, no consensus exists regarding use of hemoglobin A1c for diagnosis of diabetes for children. Performed By: #### 5 363, 496, 50414, 7600 #### [facility]-[address], [address] [place] [address] [employer] Supervisor: Donte Bhakta MD LIPID PANEL, STANDARDon Cholesterol [Mass/Vol] 226 mg/dL High <200 [facility] Comment on above: Performed By: #### 5 363, 496, 02233, 7600 #### [facility]-[address], [address] [place], [place] [address] [employer] Supervisor: Donte Bhakta MD Cholesterol in HDL [Mass/Vol] 38 mg/dL Low > OR = 40 [facility] Comment on above: Performed By: #### 5 363, 496, 45323, 7600 #### [facility]-[address], [address] [place], [place] [address] [employer] Supervisor: Donte Bhakta MD Cholesterol in LDL [Mass/Vol] 155 mg/dL High [facility] Comment on above: Result Comment: Refe rence range: <100 Desirable range <100 mg/dL for primary prevention; <70 mg/dL for patients with CHD or diabetic patients with > or = 2 CHD risk factors. LDL-C is now calculated using the Rajani calculation, which is a validated novel method providing better accuracy than the Friedewald equation in the estimation of LDL-C. Eb DAVIS et al. SINAN. 2013;310(19): 5651-8030 (http://education.[employer] [facility]/faq/VAB575) Performed By: #### 5 363, 496, 74076, 7600 #### [facility]-[address], [address] [place] [address] [employer] Supervisor: Donte Bhakta MD Cholesterol.total/Cho lesterol in HDL [Mass ratio] 5.9 {ratio} High <5.0 [facility] Comment on above: Performed By: #### 5 363, 496, 56692, 7600 #### [facility]-[address], [address] [place], [place] [address] [employer] Supervisor: Donte Bhakta MD NON HDL CHOLESTEROL 188 mg/dL (calc) High <130 [facility] Comment on above: Result Comment: For patients with diabetes plus 1 major ASCVD risk factor, treating to a non-HDL-C goal of <100 mg/dL (LDL-C of <70 mg/dL) is considered a therapeutic option. Performed By: #### 5 363, 496, 50026, 7600 #### [facility]-[address], [address] [employer] Supervisor: Donte Bhakta MD Triglyceride [Mass/Vol] 191 mg/dL High <150 [facility] Comment on above: Performed By: #### 5 363, 496, 56526, 7600 #### [facility]-[address], [address] [employer] Supervisor: Donte Bhakta MD PSA, TOTALon 04-09-2020 PSA, TOTAL 1.4 ng/mL Normal < OR = 4.0 [facility] Comment on above: Result Comment: The total PSA value from this assay system is standardized against the WHO standard. The test result will be approximately 20% lower when compared to the equimolar-standardized total PSA (Ty Hazel). Comparison of serial PSA results should be interpreted with this fact in mind. This test was performed using the Siemens chemiluminescent method. Values obtained from different assay methods cannot be used interchangeably. PSA levels, regardless of value, should not be interpreted as absolute evidence of the presence or absence of disease. Performed By: #### 5 363, 496, 89856, 7600 #### [facility]-[address], [address] [employer] Supervisor: Donte Bhakta MD Laboratory - Chemistry and C hemistry - challengeon 04-08-2020 Albumin [Mass/Vol] 4.5 g/dL Normal 3.6 - 5.1 g/dL [facility] [employer] [facility] Albumin/Globulin [Mass ratio] 1.6 {ratio} Normal 1.0 - 2.5 [place] [facility], [facility].; [employer] ALP [Catalytic activity/Vol] 70 U/L Normal 35 - 144 U/L [employer] [facility], [facility].; [employer] [facility] ALT [Catalytic activity/Vol] 22 U/L Normal 9 - 46 U/L [place] [employer] [facility], [facility].; [employer] AST [Catalytic activity/Vol] 18 U/L Normal 10 - 35 U/L [place] [employer] [facility], [facility].; [facility] Bilirubin [Mass/Vol] 0.7 mg/dL Normal 0.2 - 1 .2 mg/dL [facility], [facility].; [facility], [facility]. Calcium [Mass/Vol] 9.2 mg/dL Normal 8.6 - 10. 3 mg/dL [facility], [facility].; [facility], [facility]. Chloride [Moles/Vol] 104 mmol/L Normal 98 - 11 0 mmol/L [facility], [facility].; [facility] Cholesterol [Mass/Vol] 226 mg/dL Abnormal [facility], [facility].; [facility] Cholesterol in HDL [Mass/Vol] 38 mg/dL Abnormal [facility], [facility].; [place] [facility]. Cholesterol in LDL [Mass/Vol] 155 mg/dL Abnormal [facility].; [place] [employer] [facility] CO2 [Moles/Vol] 27 mmol/L Normal 20 - 32 mmol/L [facility].; [facility] Creatinine [Mass/Vol] 1.09 mg/dL Normal 0.70 - 1.25 mg/dL [facility].; [place] [employer] [facility], [facility]. GFR/1.73 sq M.predicted among blacks MDRD (S/P/Bld) [Vol rate/Area] 80 mL/min/{1.73_m2} Normal [facility], [facility].; [place] [employer] [facility] Glucose [Mass/Vol] 96 mg/dL Normal 65 - 99 mg/dL [facility].; [place] [employer] [facility] Potassium [Moles/Vol] 4.5 mmol/L Normal 3.5 - 5.3 mmol/L [facility].; [place] [employer] [facility] Protein [Mass/Vol] 7.3 g/dL Normal 6.1 - 8.1 g/dL [facility].; [place] [employer] Sodium [Moles/Vol] 138 mmol/L Normal 135 - 146 mmol/L [facility].; [place] [employer] Triglyceride [Mass/Vol] 191 mg/dL Abnormal [facility].; [place] [employer] [facility] Urea nitrogen [Mass/Vol] 25 mg/dL Normal 7 - 25 mg/dL [facility].; [employer] Laboratory - Hematology and Cell countson 04-08-2020 HbA1c (Bld) [Mass fraction] 5.7 % Abnormal [facility]; [employer] No Panel Informationon 04-08 BUN/CREATININE RATIO NOT APPLICABLE Normal 6 - 22 [facility]; [employer] CHOL/HDLC RATIO 5.[address] [facility].; [place] [employer] eGFR NON-AFR. BANGLADESHI 69 Normal [facility].; [employer]. GLOBULIN 2.8 Normal 1.9 - 3.7 [facility]; [employer] NON HDL CHOLESTEROL 188 Abnormal [facility].; [employer]. PSA, TOTAL 1.4 ng/mL Normal [facility]; [employer] Laboratory - Microbiology an d Antimicrobial susceptibilityon 12-21-2018 S. pyogenes Ag EIA Ql (Throat) Negative Normal [facility]. Laboratory - Chemistry and C hemistry - challengeon 04-28-2017 Bilirubin Ql (U) Negative [facility] [employer] Ketones Ql (U) 15 mg/dL Abnormal [facility].; [employer]. pH (U) 6.0 [pH] Normal [facility].; [employer]. Specific gravity (U) [Rel density] >1.030 Normal [place] [employer] [facility].; [employer]. Urobilinogen Qn (U) 1.0 mg/dL Normal [facility].; [employer]. Laboratory - Hematology and Cell countson 04-28-2017 Hemoglobin Ql (U) moderate Abnormal [place] [employer].; [employer]. Laboratory - Specimen inform ationon 04-28-2017 Appearance (U) clear Normal [facility] [employer] Color (U) red Abnormal [place] [employer].; [employer]. Laboratory - Urinalysison Glucose Test strip (U) [Mass/Vol] Negative Normal [facility].; [facility]. Leukocyte esterase Test strip Ql (U) small Abnormal [employer].; [employer] Nitrite Ql (U) Positive Abnormal [employer]. Protein Ql (U) >300 Normal [employer].; [employer]. ORon 03-04-2017 OPERATIVE REPORT Normal [facility] [place] DATE OF SERVICE: 03/04/2017PREOPERATIVE DIAGNOSIS: Right ureteral stone.POSTOPERATIVE DIAGNOSIS: Passed right ureteral stone.PROCEDURE PREFORMED: Right retrograde pyelogram.SURGEON: Nilson Parker MDANESTHESIA: General.RIGHT RETROGRADE PYELOGRAM: Precontrast images showed no abnormal calcifications,following the expected course of the collecting system. Retrograde injection ofcontrast using a cone tipped catheter showed no hydronephrosis or filling defects.Patient had an approximately 22-Persian urethra. The scope passed snuggly. Therewere no strictures.DESCRIPTION OF PROCEDURE: Mr. Garcia was administered IV antibiotics and taken tothe operating room where he was administered a general anesthetic. He was placed inlithotomy position, prepped with ChloraPrep and sterilely draped. A 21-Frenchcystoscope was used to examine the bladder. The ureteral orifices were orthotopic.There were no bladder lesions. A right retrograde pyelogram was performed with acone tipped catheter. This showed the above findings. TOMMY Mane/[id number]: 03/04/2017 14:11DT: 03/04/2017 14:31SSI File#: [id number] #: [id number]/Reviewed by03/07/178 RIKY [facility] PATIENT NAME: MARTIN GARCIA [id number] [facility] [address] MEDICAL REC #: [id number], [place] [address] DATE:DISCHARGE DATE:OPERATIVE REPORT ATTENDING PHY: Nilson Parker MD [facility] [place] PYELOGRAM RETRO UNILAT RTon 03-04-2017 PYELOGRAM RETRO UNILAT RT PYELOGRAM RETRO UNILAT RTOrdering Physician: Nilson Parker MD03/04/2017 11:30 AM - mbFLUOROSCOPY FOR RETROGRADE PYELOGRAMClinical Statement: Right ureteral calculusFINDINGS: 12 seconds fluoroscopy time was utilized by Dr. Parker. SevenC-arm images were obtained showing the injection of contrast into theright ureter in a retrograde manner.IMPRESSION:12 seconds fluoroscopy time utilized by Dr. Parker. ---- Electronic Signature on File ----Signed By: Byron Castro MD [email or web address] jameson: 03/04/2017 2:38 PMSigned: 03/04/2017 3:10 PM Reported By: BYRON CASTRO M.D. Signed By: BYRON CASTRO M.D. [facility] [place] Amylaseon 02-03-2017 Amylase 153 U/L High 25-115 [facility] Comment on above: Performed By: #### A MY ####[place] [address] CBC w/Auto Differentialon Anemia MANAGER WORK Normal [facility] Comment on above: Performed By: #### C BC ####[address] [address] Anisocytosis presence MANAGER WORK Normal [facility] Comment on above: Performed By: #### C BC ####[place] [address] Basophils Abs. # 0.0 K/uL Normal 0.0-0.1 [facility] Comment on above: Performed By: #### C BC ####[address] [address] Basophils/100 WBC Auto (Bld) 0.8 % Normal 0.2-1.0 [facility] Comment on above: Performed By: #### C BC ####[address] [address] Basophils/100 WBC Auto (Bld) MANAGER WORK Normal [facility] Comment on above: Performed By: #### C BC ####[place] [id number] Bosophillia # MANAGER WORK Normal [facility] Comment on above: Performed By: #### C BC ####[place] [id number] Eosinophils 0.3 10*3/uL High 0.0-0.2 [facility] Comment on above: Performed By: #### C BC ####[address] [address] Eosinophils MANAGER WORK Normal [facility] Comment on above: Performed By: #### C BC ####[place] [address] Eosinophils/100 leukocytes PRESENT Abnormal [facility] Comment on above: Performed By: #### C BC ####[place] [address] Eosinophils/100 leukocytes 5.3 % High 0.9-2.9 [facility] Comment on above: Performed By: #### C BC ####[place] [address] Erythocytosis MANAGER WORK Normal [facility] Comment on above: Performed By: #### C BC ####[address] [address] Erythrocyte distribution width Auto Ratio (RBC) 14.2 % Normal 11.5-14.5 [facility] Comment on above: Performed By: #### C BC ####[address] [address] Erythrocytes (RBC) 5.34 10*6/uL Normal 4.13-5.69 [facility] Comment on above: Performed By: #### C BC ####[address] [address] Erythrocytes (RBC) 0.0 10*6/uL Normal [facility] Comment on above: Performed By: #### C BC ####[address] [address] Hematocrit (HCT) 45.0 % Normal 36.7-50.6 [facility] Comment on above: Performed By: #### C BC ####[address] [address] Hemoglobin mass conc (Bld) 15.1 g/dL Normal 12.4-17.3 [facility] Comment on above: Performed By: #### C BC ####[address] [address] Hypochromia MANAGER WORK Normal [facility] Comment on above: Performed By: #### C BC ####[address] [address] Large Platelets MANAGER WORK Normal [facility] Comment on above: Performed By: #### C BC ####[address] [address] Leukocytosis MANAGER WORK Normal [facility] Comment on above: Performed By: #### C BC ####[address] [address] Leukopenia MANAGER WORK Normal [facility] Comment on above: Performed By: #### C BC ####[address] [address] Lymphocytes MANAGER WORK Normal [facility] Comment on above: Performed By: #### C BC ####[address] [address] Lymphocytes 2.7 10*3/uL Normal 1.3-2.9 [facility] Comment on above: Performed By: #### C BC ####[address] [address] Lymphocytes/100 leukocytes MANAGER WORK Normal [facility] Comment on above: Performed By: #### C BC ####[address] [address] Lymphocytes/100 leukocytes 43.2 % Normal 17.0-45.5 [facility] Comment on above: Performed By: #### C BC ####[address] [address] Macrocytosis MANAGER WORK Normal [facility] Comment on above: Performed By: #### C BC ####[address] [address] MCH 28.3 pg Normal 27.0-31.0 [facility] Comment on above: Performed By: #### C BC ####[address] [address] MCHC mass conc (RBC) 33.6 g/dL Normal 33.0-37.0 [facility] Comment on above: Performed By: #### C BC ####[address] [address] MCV 84.2 fL Normal 80.0-94.0 [facility] Comment on above: Performed By: #### C BC ####[address] [address] Microcytosis MANAGER WORK Normal [facility] Comment on above: Performed By: #### C BC ####[address] [address] Monocytes 0.7 10*3/uL Normal 0.3-0.8 [facility] Comment on above: Performed By: #### C BC ####[address] [address] Monocytes/100 leukocytes 10.7 % Normal 5.5-11.7 [facility] Comment on above: Performed By: #### C BC ####[address] [address] Monocytosis % MANAGER WORK Normal [facility] Comment on above: Performed By: #### C BC ####[address] [address] Neutropenia # MANAGER WORK Normal [facility] Comment on above: Performed By: #### C BC ####[address] [address] Neutropenia % MANAGER WORK Normal [facility] Comment on above: Performed By: #### C BC ####[address] [address] Neutrophilia % MANAGER WORK Normal [facility] Comment on above: Performed By: #### C BC ####[address] [address] Neutrophils 2.5 10*3/uL Normal 2.2-4.8 [facility] Comment on above: Performed By: #### C BC ####[address] [address] Neutrophils MANAGER WORK Normal [facility] Comment on above: Performed By: #### C BC ####[address] [address] Neutrophils/100 WBC Auto (Bld) 40.0 % Low 43.0-65.0 [facility] Comment on above: Performed By: #### C BC ####[address] [address] NRBC % 0.0 % Normal [facility] Comment on above: Performed By: #### C BC ####[address] [address] Pancytopenia MANAGER WORK Normal [facility] Comment on above: Performed By: #### C BC ####[address] [address] Platelet mean volume (PMV) 7.6 fL Normal 7.4-10.4 [facility] Comment on above: Performed By: #### C BC ####[address] [address] Platelets 216 10*3/uL Normal 148-402 [facility] Comment on above: Performed By: #### C BC ####[address] [address] Poikilocytosis MANAGER WORK Normal [facility] Comment on above: Performed By: #### C BC ####[address] [address] Small Platelets MANAGER WORK Normal [facility] Comment on above: Performed By: #### C BC ####[address] [address] Thrombocytopenia MANAGER WORK Normal [facility] Comment on above: Performed By: #### C BC ####[address] [address] Thrombocytopenia. MANAGER WORK Normal [facility] Comment on above: Performed By: #### C BC ####[facility] [place], [place] [address] Thrombocytosis MANAGER WORK Normal [facility] Comment on above: Performed By: #### C BC ####[facility] [place], [place] [address] WBC (Leukocytes) 6.2 10*3/uL Normal 3.6-10.8 [facility] Comment on above: Performed By: #### C BC ####[facility] [place] [address] ABD/PELVIS W/Oon 02-04-20 CT ABD/PELVIS W/O Examination: CT abdomen/pelvis without contrastHistory:RFE: RLQ abd painComparison:noneTechni que: CT scan of the abdomen and pelvis is performed without the use ofintravenous or oral contrast which limits evaluation of the solid organs of theabdomen pelvis, bowel, and vascular structures.Findings:Linea r atelectasis versus scarring and bilateral lower lobes.Evaluation of intra-abdominal solid organs limited by lack of intravenouscontrast. Liver, spleen, pancreas, gallbladder, bilateral adrenal glands aregrossly within normal limits. There is a 4 mm obstructive calculus in the midright ureter resulting in mild hydroureteronephrosis and mild perinephricstranding. Left renal collecting system is decompressed.Evaluation of bowel limited by lack of oral contrast. No pathological dilatation of small bowel loops. Appendix is not clearly delineated. Scattereddiverticulaof the sigmoid colon without any evidence of acute diverticulitis.Abdominal aorta is normal in course and caliber. No evidence of lymphadenopathy. No free intra-abdominal air or free fluid. Prostatomegaly. Largefat-containingleft inguinal hernia. Mild sigmoid scoliotic curvature of thelumbar spine.Impression:1. A 4 mm obstructive calculus in the right mid ureter resulting in mildhydroureteronephrosis .2. Scattered diverticula of the sigmoid colon without any evidence of acutediverticulitis.3. Prostatomegaly.4. Large fat-containing left inguinal hernia.5. Sigmoid scoliotic curvature of the visualized thoracolumbar spine. Electronically Signed by Edilam Reyes 02/03/2017 16:46 Normal [facility] Comprehensive Metabolic Pane carmelo 02-03-2017 Alanine aminotransferase (ALT) 30 U/L Normal 13-66 [facility] Comment on above: Performed By: #### C MP ####[address] [address] Albumin 3.6 g/dL Normal 3.4-5.0 [facility] Comment on above: Performed By: #### C MP ####[address] [address] Albumin/Globulin Ratio 1.0 {ratio} Low 1.1-2.5 [facility] Comment on above: Performed By: #### C MP ####[address] [address] Alkaline phosphatase (ALP) 75 U/L Normal 54-112 [facility] Comment on above: Performed By: #### C MP ####[address] [address] Anion gap 8.2 mmol/L Normal 8.0-16.0 [facility] Comment on above: Performed By: #### C MP ####[address] [address] Aspartate aminotransferase (AST) 19 U/L Normal 3-39 [facility] Comment on above: Performed By: #### C MP ####[address] [address] Bilirubin Ql (U) 0.55 mg/dL Normal 0.00-0.99 [facility] Comment on above: Performed By: #### C MP ####[address] [address] BUN/Creatinine Ratio 18 mg/mg Normal 6-20 [facility] Comment on above: Performed By: #### C MP ####[address] [address] Calcium 8.5 mg/dL Normal 8.2-10.0 [facility] Comment on above: Performed By: #### C MP ####[address] [address] Chloride 105 mmol/L Normal 94-110 [facility] Comment on above: Performed By: #### C MP ####[address] [address] CO2 30 mmol/L Normal 21-34 [facility] Comment on above: Performed By: #### C MP ####[address] [address] Creatinine 1.07 mg/dL Normal 0.50-1.17 [facility] Comment on above: Performed By: #### C MP ####[address] [address] eGFR (black) mL/min/{1.73_m2} Normal >60 [facility] Comment on above: Result Comment: Systems Software Designer bola Kidney Disease less than 60 mL/min/1.73 [id number] Failure less than 15 mL/min/1.73 [id number] estimated GFR by age:60-69 years 85 mL/min/1.73 m2 Performed By: #### C MP ####[address] [address] eGFR (non-black) mL/min/{1.73_m2} Normal >60 [facility] Comment on above: Performed By: #### C MP ####[address] [address] Globulin 3.5 g/dL Normal 1.5-4.5 [facility] Comment on above: Performed By: #### C MP ####[address] [place], [place] [address] Glucose mass conc 139 mg/dL High 65-100 [facility] Comment on above: Performed By: #### C MP ####[facility] [place], [place] [address] Potassium molar conc 3.4 mmol/L Normal 3.3-5.1 [facility] Comment on above: Performed By: #### C MP ####[address] [address] Protein 7.0 g/dL Normal 6.1-8.2 [facility] Comment on above: Performed By: #### C MP ####[address] [address] Sodium 140 mmol/L Normal 132-145 [facility] Comment on above: Performed By: #### C MP ####[address] [address] Urea nitrogen 19.2 mg/dL Normal 3.2-26.9 [facility] Comment on above: Performed By: #### C MP ####[address] [address] EMERGENCY DEPARTMENTon 02-03 EMERGENCY DEPARTMENT [address] [address] HEALTH INFORMATION MANAGEMENT EMERGENCY DEPARTMENT : [id number] Signed Patient: MARTIN GARCIA Acct:[id number] MRUN: [id number] : 1950 Sex: M Loc: ED ADM Date: 02/03/17 Room/Bed: DISC Date: _ History of Present Illness - General Chief Complaint: Pain Stated Complaint: RIGHT SIDE PAIN VOMITING Symptom onset: 45 MINUTES AGO HPI: PT. HAD 2 EPISODES OF VOMITING AT WORK PRIOR TO COMING TO ED. PT. ALSO C/O PAIN AT BELT LEVEL RIGHT SIDE. DENIES DIARRHEA. DENIES CHEST PAIN OR SHORTNESS OF BREATH. Patient reports pain was dull, 6 out of 10 and is now 2 out of 10. Denies any injury or fall. No back pain or saddle anesthesia. No penile bleeding or discharge. Denies any testicular or scrotal pain. Denies any travelling history/sick contacts/recent use of antibiotics. No cough/congestion/fever/ch ills/rash. No blood in stool/vomitus or urine. NO LOC/Dizziness/Syncope. No KNAPP, neck pain, CP, dyspnea. No speech/vision problems. No numbness, tingling or paresthesias. No unilateral weakness in face or extremities. Time Seen by Provider: 02/03/17 14:34 Mode of Transport: Ambulatory Who is the Attending Physician?: NOAH FISHER Is This The Back Up Physician?: Yes Specialists: DR. DOMINGO IN [place] PCP - Related Data Home Medications Medication Instructions Recorded Confirmed Apremilast [Otezla] 30 mg PO BID 02/03/17 02/03/17 Aspirin [Aspir 81] 81 mg PO DAILY 02/03/17 02/03/17 Hydrocodone/Acetaminophen [[place] 1 each PO QID PRN #14 tablet 02/03/17 5-325 Tablet] Metoprolol Succinate [Toprol Xl] 25 mg PO DAILY 02/03/17 02/03/17 Ondansetron [Zofran 4 mg 4 mg PO QID PRN #14 tab.rapdis 02/03/17 Disintegrating Tablet] Sulfamethoxazole/Trimetho prim 1 tab PO BID #14 tablet 02/03/17 [Bactrim/Septra Ds Tablet] Tamsulosin HCl [Flomax 0.4 mg 0.4 mg PO DAILY #5 capsule 02/03/17 Capsule] Allergies Allergy/AdvReac Type Severity Reaction Status Date / Time No Known Allergies Allergy Unverified 02/03/17 14:39 Review of System - Constitutional Constitutional: Present: Well developed, Well nourished, Non-toxic. Absent: chills, diaphoresis, fever, malaise, weakness, Lethargic - Nose,Throat,Mouth Nose (ROS): Absent: pain Throat: Absent: pain, swelling, discharge Mouth: Absent: pain, swelling - Respiratory Respiratory: Present: no symptoms reported. Absent: cough, short of breath, wheezing - CV Cardiology: Present: no symptoms reported. Absent: chest pain, edema - GI Gastrointestinal/Abdomina l: Present: abdominal pain, nausea, vomiting. Absent: diarrhea - Genitourinary Symptoms: Present: no symptoms reported. Absent: dysuria, flank pain, pain - Neuro Neurological: Present: no symptoms reported. Absent: headache, weakness, saddle anesthesia - Muskuloskeletal Musculoskeletal: Present: no symptoms reported. Absent: back pain, joint pain, joint swelling, neck pain - Integumentary Skin: Absent: lesions, rash - Allergic/Immunologic Immunological/Allergic: Present: no symptoms reported - Hematologic Hematologic/Lymphatic: Absent: easy bleeding, easy bruising, swollen glands - Endocrine Endocrine: Present: no symptoms reported - Psychiatric Psychiatric: Present: Normal Affect, Normal Mood. Absent: Depressed - All Others/Exceptions All Other Systems: Reviewed and Negative Except Where Noted in Documentation ED PMH/Social HX/Family HX - Respiratory Hx Respiratory Disorders: No - Cardiovascular Hx Cardiac Disorders: Yes PMH--Cardiovascular: HTN - Neurological Hx Neurological Disorder: No - Endocrine Hx Endocrine Disorders: No - Gastrointestinal Hx Gastrointestinal Disorders: No - Genitourinary Hx Genitourinary Disorders: No - Musculoskeletal Hx Musculoskeletal Disorders: No - Psychological Hx Psychosocial Problems: No - HEENT Hx Ear, Nose Throat Disorders: No - Cancer Hx Cancer: No - Immunizations Hx Tetanus, Diphtheria Vaccination: Yes Hx Influenza Vaccination: No Hx Pneumococcal Vaccination: Yes - Social History Able to Read: Yes Able to Write: Yes Smoking Status: Never Smoked Hx Chewing Tobacco Use: No Alcohol Use: Rarely Any recreational drug use reported?: No Feels Threatened In Home Environment: No Feels Threatened In a Relationship: No - Family PMH Father FAMILY HX-NEGATIVE: CAD Living Status: Age of : 48 Mother FAMILY HX-NEGATIVE: CANCER Age: 90 Living Status: Still Living General Exam - General Limitations: Complains of: no limitations Constitutional: Present: Well developed, Well nourished, well hydrated, Non-toxic. Absent: chills, diaphoresis, fever, malaise, weakness, Lethargic - Head Head exam: Present: atraumatic, normocephalic, normal inspection - Eye Eye exam: Present: normal apperance, normal accomodation, EOMI Pupils: Present: PERRL - ENT ENT exam: Present: normal orophraynx, mucous membranes moist, TMs clear w/ good light reflex, normal external ear exam, No Nasal Discharge, Posterior Pharynx Non-erethemetous - Expanded ENT Exam Ear exam: Present: normal external inspection Mouth exam: Present: normal external inspection Teeth exam: Present: normal inspection Throat exam: normal inspection - Neck Neck exam: Present: full ROM, Supple. Absent: tenderness, meningismus, Posterior Lymphadenopathy, Anterior Lymphadenopathy, anterior neck swelling, tracheal deviation - Respiratory Respiratory exam: Present: lungs clear equal bilaterally. Absent: respiratory distress, wheezes, rales, rhonchi, stridor, accessory muscle use, Nasal Flaring - Cardiovascular Cardiovascular Exam: Present: regular rate, normal rhythm, normal heart sounds. Absent: murmur, rubs, gallop, clicks - GI/Abdominal GI/Abdominal exam: Present: soft, normal bowel sounds, tenderness (rlq), equal femoral pulses. Absent: guarding, rebound, rigid, organomegaly, mass, bruit, pulsatile mass, hernia - Male Exam exam: Present: normal inspection, other (No testicular/scrotal redness or swelling or tenderness) - Extremities Exam Extremities exam: Present: normal inspection, neurovascularly intact, full ROM, normal muscle strength, normal/equal pulses. Absent: calf tenderness, pedal edema, tenderness - Back Exam Back exam: Present: normal inspection, full ROM. Absent: tenderness, CVA tenderness (R), CVA tenderness (L), vertebral tenderness, rash noted - Neurological Exam Neurological exam: Present: alert, oriented X3, CN II-XII intact, reflexes normal. Absent: motor sensory deficit - Expanded Neurological Exam Patient oriented to: Present: person, place, time Speech: Present: fluid speech - Psychiatric Psychiatric exam: Present: normal affect, normal mood - Skin Skin Color: Present: Normal, [place] Skin exam: Present: warm, dry - Expanded Skin Exam Type of lesion: Absent: rash - Vital Signs Vital Signs 02/03/17 02/03/17 02/03/17 14:35 14:46 16:05 Temperature 97.0 F 97.0 F 97.9 F Pulse Rate [VS 70 70 68 Machine] Respiratory 17 17 17 Rate Blood Pressure 166/82 H 166/82 H 136/75 [Left Arm Lying ] O2 Sat by Pulse 98 98 95 Oximetry(%) 02/03/17 16:48 Temperature Pulse Rate [VS 79 Machine] Respiratory 16 Rate Blood Pressure 148/79 [Left Arm Lying ] O2 Sat by Pulse 96 Oximetry(%) Course - Reevaluation(s) Reevaluation #1: 02/03/17 17:03 labs reviewed. CBC and CMP unremarkable. UA showed blood and leukocyte esterase CT abdomen and pelvis shows a 4 mm obstructive that was in the right mid ureter resulting in mild hydroureteronephrosis patient's pain is well controlled. Nonacute/nonsurgical abdomen examination chemistries unremarkable Patient to be started on pain medications, Flomax and he'll be referred to urology. Patient instructed to call urologist's office today and schedule follow-up appointment to be seen in the next 2-3 days No back pain no saddle Anesthesia. No trouble with bowel or bladder function Patient is tolerating PO well, ambulating well. Patient appears well hydrated, nontoxic V.S are stable. Patient is hemodynamically stable. NV intact. Speech and grasp are intact, normal gait. No Vision problems. Nonacute/nonsurgical abdomen Exam, Negative Meningeal signs. Reassuring Labs and V.S. Patient appears stable for discharge and outpatient follow up. Warning signs discussed with patient to return back to ER if any worsening of symptoms. Patient states understanding of need for f/up and agrees with management and plan. Abdominal pain MDM - Lab Data Result diagrams: 02/03/17 14:40 02/03/17 14:40 Lab Results 02/03/17 02/03/17 02/03/17 Range/Units 00:00 14:40 14:40 WBC 6.2 (3.6-10.8) K/uL RBC 5.34 (4.13-5.69) M/uL Hgb 15.1 (12.4-17.3) g/dL Hct 45.0 (36.7-50.6) % MCV 84.2 (80.0-94.0) fL MCH 28.3 (27.0-31.0) pg MCHC 33.6 (33.0-37.0) g/dL RDW 14.2 (11.5-14.5) % Plt Count 216 (148-402) K/uL MPV 7.6 (7.4-10.4) fL Neut % 40.0 L (43.0-65.0) % Lymph % 43.2 (17.0-45.5) % [place] % 10.7 (5.5-11.7) % Eos % 5.3 H (0.9-2.9) % Baso % 0.8 (0.2-1.0) % Absolute Neuts (auto) 2.5 (2.2-4.8) K/uL Absolute Lymphs (auto) 2.7 (1.3-2.9) K/uL Absolute Monos (auto) 0.7 (0.3-0.8) K/uL Absolute Eos (auto) 0.3 H (0.0-0.2) K/uL Absolute Basos (auto) 0 (0.0-0.1) K/uL Nucleated RBC % 0 % Nucleated RBCs # 0 K/uL Eosinophilia % Present A Sodium 140 (132-145) mmol/L Potassium 3.4 (3.3-5.1) mmol/L Chloride 105 (94-110) mmol/L Total Carbon Dioxide 30 (21-34) mmol/L Anion Gap 8.2 (8.0-16.0) mmol/L BUN 19.2 (3.2-26.9) mg/dL Creatinine 1.07 (0.50-1.17) mg/dL Est GFR (MDRD) Af Amer > 60 (>60) Est GFR (MDRD) Non-Af > 60 (>60) BUN/Creatinine Ratio 18 (6-20) Glucose 139 H (65-100) mg/dL Calcium 8.5 (8.2-10.0) mg/dL Total Bilirubin 0.55 (0.00-0.99) mg/dL AST 19 (3-39) U/L ALT 30 (13-66) U/L Alkaline Phosphatase 75 (54-112) U/L Total Protein 7.0 (6.1-8.2) g/dL Albumin 3.6 (3.4-5.0) g/dL Globulin 3.5 (1.5-4.5) g/dL Albumin/Globulin Ratio 1.0 L (1.1-2.5) Amylase 153 H (25-115) U/L Lipase 185 (65-230) U/L Urine Color ayala (Yellow) Urine Appearance very cloudy (Clear) Urine pH 6 Ur Specific [place] 1.020 (1.015-1.025) Urine Protein Trace A (Negative) Urine Ketones Trace (Negative) Urine Blood 250 A (Negative) Urine Nitrite Positive A (Negative) Urine Bilirubin 1+ A (Negative) Urine Urobilinogen 1 (Normal-1.0) mg/dL Ur Leukocyte Esterase 1+ A (Negative) Urine RBC 10-20 (0 - 2) /hpf Urine WBC 2-5 (0 - 6) /hpf Urine Bacteria 2+ (0 - 1+) /hpf Urine Glucose Normal (Negative) Orders: Medications Discontinued Medications Sodium Chloride (Sodium Chloride 0.9 % 500 Ml) 500 mls @ 500 mls/hr IV .Q1H STA Stop: 02/03/17 15:37 Last Infusion: 02/03/17 16:12 Dose: 0 mls/hr Morphine Sulfate (Morphine 2 Mg/Ml Injection) 2 mg IVP STAT STA Stop: 02/03/17 15:08 Last Admin: 02/03/17 15:25 Dose: Not Given Non-Admin Reason: Patient Refused Ondansetron HCl (Zofran 4 Mg/2 Ml Injection) 4 mg IVP STAT STA Stop: 02/03/17 14:39 Last Admin: 02/03/17 14:59 Dose: 4 mg Labs 02/03/17 14:38 ED-IV [RC] ONE Normal Saline 0.9 % 500 ml [Sodium Chloride 0.9 % 500 ml] 500 ml IV 500 mls/hr Ondansetron HCl/Pf [Zofran 4 mg/2 ml Injection] 4 mg IVP STAT STA 02/03/17 14:40 Amylase [CHM] Stat CBC w/Auto Differential [HEM] Stat Comprehensive Metabolic Panel [CHM] Stat Lipase [CHM] Stat 02/03/17 15:07 Morphine Sulfate [Morphine 2 mg/ml Injection] 2 mg IVP STAT STA 02/03/17 15:45 CT ABD/PELVIS W/O [CT] Stat 02/03/17 16:35 UA w/micrscopic-reflex culture [URN] Stat 02/03/17 16:53 Culture Urine [NELSY] Stat 02/03/17 16:58 Ketorolac Tromethamine [Toradol 30 mg/ml Injection] 30 mg IVP STAT STA Tamsulosin HCl [Flomax 0.4 mg Capsule] 0.4 mg PO ONE ONE - Radiology Data Radiology Report: Radiology report reviewed,see report for findings Radiology Impressions Abdomen/Pelvis CT 02/03/17 15:45 Impression: 1. A 4 mm obstructive calculus in the right mid ureter resulting in mild hydroureteronephrosis. 2. Scattered diverticula of the sigmoid colon without any evidence of acute diverticulitis. 3. Prostatomegaly. 4. Large fat-containing left inguinal hernia. 5. Sigmoid scoliotic curvature of the visualized thoracolumbar spine. Electronically Signed by Edilma Reyes 02/03/2017 16:46 - Differential Diagnosis Differential DX Abdominal pain: Considered: Appendicitis, Perforated peptic ulcer, Perforated viscus, Early appendicitis, Bowel obstruction, Cholecystitis, Constipation, Gastroenteritis, hepatitis, Inflammatory bowel disease, Intussusception, Ischemic bowel, Neoplasm, PUD, Renal/ureteral calculi, Gonadal torsion, UTI ED Discharge Summary - Discharge Data Clinical Impression: Right ureteral stone, Enlarged prostate, Left inguinal hernia Condition: Good Disposition: 01 HOME, SELF-CARE Referrals: YUNIEL SANTO MD [MEDICAL DOCTOR] - Additional Instructions: Return to ER if symptoms worse/any other problems. Call and f/up with UROLOGIST in 2-3 days for reevaluation of current symptoms/findings. Call [phone] today and schedule follow-up appointment. Strain urine for stone Home Medications: Ambulatory Orders Medication Instructions Recorded Apremilast [Otezla] 30 mg PO BID 02/03/17 Aspirin [Aspir 81] 81 mg PO DAILY 02/03/17 Hydrocodone/Acetaminophen [[place] 1 each PO QID PRN #14 tablet 02/03/17 5-325 Tablet] Metoprolol Succinate [Toprol Xl] 25 mg PO DAILY 02/03/17 Ondansetron [Zofran 4 mg 4 mg PO QID PRN #14 tab.rapdis 02/03/17 Disintegrating Tablet] Sulfamethoxazole/Trimetho prim 1 tab PO BID #14 tablet 02/03/17 [Bactrim/Septra Ds Tablet] Tamsulosin HCl [Flomax 0.4 mg 0.4 mg PO DAILY #5 capsule 02/03/17 Capsule] Home medications and allergies reviewed: Yes Time Seen by Provider: 02/03/17 14:34 - Consultation Nurses Notes Reviewed and Agreed With?: Yes - Dictation Amendments/Documentation: [employer] Document Only Attestation: You have been given a medicine in the ED which may cause drowsiness, per our policy, you must have a seasonal driver take you home DO NOT DRIVE OR OPERATE DANGEROUS MACHINERY while taking medicine prescribed for you today ! Electronically Generated By: JESSICA ORTEZ MD Generated Date/Time: 02/03/17 1547 Electronically Signed By: JESSICA ORTEZ MD Signed Date/Time 02/03/17 1705 Co Signed Electronically By: Co Signed Date/Time: CC: NOAH FISHER Normal [facility] Lipaseon 02-03-2017 Lipase 185 U/L Normal 65-230 [facility] Comment on above: Performed By: #### L IPAS ####[address] [address] UA w/Micrscopic-reflex cultu reon 02-03-2017 Bilirubin Ql (U) 1+ Abnormal Negative [facility] Comment on above: Result Comment: ?Met abolites of etodolac or high concentration of urobilinogen may causefalse positive results. Correlate clinically.? Performed By: #### U AMRC ####[address] [address] Blood 250 Abnormal Negative [facility] Comment on above: Performed By: #### U AMRC ####[address] [address] Casts. MANAGER WORK Normal [facility] Comment on above: Performed By: #### U AMRC ####[address] [address] Collection Type MANAGER WORK Normal [facility] Comment on above: Performed By: #### U AMRC ####[address] [address] Crystals. MANAGER WORK Normal [facility] Comment on above: Performed By: #### U AMRC ####[address] [address] Erythrocytes (RBC) 10-20 Normal 0 - 2 [facility] Comment on above: Performed By: #### U AMRC ####[address] [address] Glucose mass conc NORMAL Normal Negative [facility] Comment on above: Performed By: #### U AMRC ####[address] [address] Protein Trace Abnormal Negative [facility] Comment on above: Performed By: #### U AMRC ####[address] [address] Trichomonas MANAGER WORK Normal [facility] Comment on above: Performed By: #### U AMRC ####[address] [address] Urine, appearance very cloudy Normal Clear [facility] Comment on above: Performed By: #### U AMRC ####[address] [address] Urine, bacteria in sediment 2+ /hpf Normal 0 - 1+ [facility] Comment on above: Performed By: #### U AMRC ####[address] [address] Urine, casts in sediment MANAGER WORK Normal [facility] Comment on above: Performed By: #### U AMRC ####[address] [address] Urine, color ayala Normal Yellow [facility] Comment on above: Performed By: #### U AMRC ####[address] [address] Urine, crystals in sediment MANAGER WORK Normal [facility] Comment on above: Performed By: #### U AMRC ####[address] [address] Urine, epithelial cells in sediment MANAGER WORK Normal 0 - 6 [facility] Comment on above: Performed By: #### U AMRC ####[address] [address] Urine, ketones presence Trace Normal Negative [facility] Comment on above: Performed By: #### U AMRC ####[address] [address] Urine, mucus presence in sediment MANAGER WORK Normal [facility] Comment on above: Performed By: #### U AMRC ####[address] [address] Urine, nitrite presence Positive Abnormal Negative [facility] Comment on above: Performed By: #### U AMRC ####[address] [address] Urine, pH 6 [pH] Normal [facility] Comment on above: Performed By: #### U AMRC ####[address] [address] Urine, specific gravity 1.020 Normal 1.015-1.025 [facility] Comment on above: Performed By: #### U AMRC ####[address] [address] Urine, urobilinogen 1 mg/dL Normal Normal-1.0 [facility] Comment on above: Performed By: #### U AMRC ####[address] [address] Urine, yeast presence in sediment MANAGER WORK Normal [facility] Comment on above: Performed By: #### U AMRC ####[address] [address] WBC (Leukocytes) 2-5 Normal 0 - 6 [facility] Comment on above: Performed By: #### U AMRC ####[address] [address] WBC (Leukocytes) 1+ Abnormal Negative [facility] Comment on above: Performed By: #### U AMRC ####[address] [address] Other MANAGER WORK Normal [facility] Comment on above: Performed By: #### U AMRC ####[address] [address] Laboratory - Chemistry and C hemistry - challengeon 04-01-2016 Albumin [Mass/Vol] 4.1 g/dL Normal 3.6 - 5.1 g/dL [employer] [facility] [employer]. Albumin/Globulin [Mass ratio] 1.6 {ratio} Normal 1.0 - 2.5 [employer]. ALP [Catalytic activity/Vol] 77 U/L Normal 40 - 115 U/L [employer] [facility].; [employer] ALT [Catalytic activity/Vol] 18 U/L Normal 9 - 46 U/L [employer]. AST [Catalytic activity/Vol] 17 U/L Normal 10 - 35 U/L [employer]. Bilirubin [Mass/Vol] 0.6 mg/dL Normal 0.2 - 1 .2 mg/dL [employer]. Calcium [Mass/Vol] 9.8 mg/dL Normal 8.6 - 10. 3 mg/dL [employer]. Chloride [Moles/Vol] 104 mmol/L Normal 98 - 11 0 mmol/L [employer]. Cholesterol [Mass/Vol] 226 mg/dL Abnormal 125 - 200 mg/dL [facility].; [facility]. Cholesterol in HDL [Mass/Vol] 39 mg/dL Abnormal [facility].; [facility]. Cholesterol in LDL [Mass/Vol] 155 mg/dL Abnormal [facility].; [facility]. Cholesterol in LDL real size pattern Nom B Abnormal [facility].; [facility] Cholesterol non HDL [Mass/Vol] 187 mg/dL Abnormal [facility].; [facility]. Cholesterol.total/Cho lesterol in HDL [Mass ratio] 5.8 {ratio} Abnormal [facility]; [facility] CO2 [Moles/Vol] 31 mmol/L Normal 20 - 31 mmol/L [facility]; [facility]. Creatinine [Mass/Vol] 0.97 mg/dL Normal 0.70 - 1.25 mg/dL [facility].; [facility]. GFR/1.73 sq M.predicted among blacks MDRD (S/P/Bld) [Vol rate/Area] 95 {ML/MIN/1.73M2} Normal [facility]; [facility]. GFR/1.73 sq M.predicted MDRD (S/P/Bld) [Vol rate/Area] 82 {ML/MIN/1.73M2} Normal [facility].; [facility]. Globulin (S) [Mass/Vol] 2.6 g/dL Normal 1.9 - 3.7 g/dL [facility].; [place] [employer] [facility], [facility]. Glucose [Mass/Vol] 109 mg/dL Abnormal 65 - 99 mg/dL [facility].; [facility]. Lipoprotein.alpha.sub particle.large [Moles/Vol] 4445 nmol/L Normal 4334 - [address] nmol/L [facility].; [facility]. Lipoprotein.beta.subp article [Entitic length] 212.0 {Angstrom} Abnormal [facility].; [facility] Lipoprotein.beta.subp article [Moles/Vol] 1708 nmol/L Normal 1016 - 2185 nmol/L [facility].; [place] [employer] [facility] Lipoprotein.beta.subp article.small [Moles/Vol] 454 nmol/L Abnormal 123 - 441 nmol/L [facility].; [place] [employer]. Potassium [Moles/Vol] 4.0 mmol/L Normal 3.5 - 5.3 mmol/L [facility].; [employer]. Protein [Mass/Vol] 6.7 g/dL Normal 6.1 - 8.1 g/dL [facility].; [place] [employer]. Sodium [Moles/Vol] 139 mmol/L Normal 135 - 146 mmol/L [facility].; [place] [employer]. Triglyceride [Mass/Vol] 161 mg/dL Abnormal [employer] [facility]; [employer] Urea nitrogen [Mass/Vol] 28 mg/dL Abnormal 7 - 25 mg/dL [facility].; [employer] Urea nitrogen/Creatinine [Mass ratio] 28.9 mg/mg Abnormal 6 - 22 [facility] [employer] No Panel Informationon 04-01 LDL MEDIUM 409 nmol/L Normal 167 - 465 nmol/L [facility]; [employer]. Laboratory - Chemistry and C hemistry - challengeon 03-13-2015 Albumin [Mass/Vol] 4.4 g/dL Normal 3.6 - 5.1 g/dL [facility]; [employer] Albumin/Globulin [Mass ratio] 1.4 {ratio} Normal 1.0 - 2.5 [facility].; [employer], [employer]. ALP [Catalytic activity/Vol] 73 U/L Normal 40 - 115 U/L [facility].; [place] [employer]. ALT [Catalytic activity/Vol] 22 U/L Normal 9 - 46 U/L [facility].; [employer]. AST [Catalytic activity/Vol] 21 U/L Normal 10 - 35 U/L [facility].; [employer]. Bilirubin [Mass/Vol] 0.6 mg/dL Normal 0.2 - 1 .2 mg/dL [facility].; [facility]. Calcium [Mass/Vol] 9.7 mg/dL Normal 8.6 - 10. 3 mg/dL [facility].; [facility]. Chloride [Moles/Vol] 104 mmol/L Normal 98 - 11 0 mmol/L [facility].; [facility]. Cholesterol [Mass/Vol] 246 mg/dL Abnormal 125 - 200 mg/dL [facility].; [facility]. Cholesterol in HDL [Mass/Vol] 44 mg/dL Normal [facility].; [facility]. Cholesterol in LDL [Mass/Vol] 177 mg/dL Abnormal [facility].; [place] [employer] [facility], [facility]. Cholesterol non HDL [Mass/Vol] 203 mg/dL Abnormal [facility].; [facility]. Cholesterol.total/Cho lesterol in HDL [Mass ratio] 5.6 {ratio} Abnormal [facility].; [place] [employer] [facility]. CO2 [Moles/Vol] 27 mmol/L Normal 19 - 30 mmol/L [facility].; [place] [employer] [facility], [facility]. Creatinine [Mass/Vol] 1.10 mg/dL Normal 0.70 - 1.25 mg/dL [facility].; [facility]. GFR/1.73 sq M.predicted among blacks MDRD (S/P/Bld) [Vol rate/Area] 82 {ML/MIN/1.73M2} Normal [facility].; [facility]. GFR/1.73 sq M.predicted MDRD (S/P/Bld) [Vol rate/Area] 71 {ML/MIN/1.73M2} Normal [facility].; [facility] Globulin (S) [Mass/Vol] 3.0 g/dL Normal 1.9 - 3.7 g/dL [facility].; [facility]. Glucose [Mass/Vol] 96 mg/dL Normal 65 - 99 mg/dL [facility].; [facility]. Potassium [Moles/Vol] 4.4 mmol/L Normal 3.5 - 5.3 mmol/L [facility].; [facility]. Prostate specific Ag [Mass/Vol] 1.6 ng/mL Normal 0.0 - 4.0 ng/mL [facility].; [facility] Protein [Mass/Vol] 7.4 g/dL Normal 6.1 - 8.1 g/dL [facility].; [facility]. Sodium [Moles/Vol] 139 mmol/L Normal 135 - 146 mmol/L [facility]; [facility]. Testosterone [Mass/Vol] 534 ng/dL Normal 250 - 1100 ng/dL [facility]; [facility] Testosterone Free [Mass/Vol] 46.2 pg/mL Normal 46.0 - 224.0 pg/mL [facility]; [facility]. Triglyceride [Mass/Vol] 123 mg/dL Normal [facility]; [facility]. Urea nitrogen [Mass/Vol] 25 mg/dL Normal 7 - 25 mg/dL [facility]; [facility]. Urea nitrogen/Creatinine [Mass ratio] 22.9 mg/mg Abnormal 6 - 22 [facility]; [facility] Laboratory - Chemistry and C hemistry - challengeon 04-28-2011 ALT [Catalytic activity/Vol] 21 U/L Normal 9 - 60 U/L [facility]; [facility]. Cholesterol [Mass/Vol] 214 mg/dL Abnormal 125 - 200 mg/dL [facility].; [facility]. Cholesterol in HDL [Mass/Vol] 35 mg/dL Abnormal [facility].; [facility]. Cholesterol in LDL [Mass/Vol] 145 mg/dL Abnormal [facility].; [facility] Cholesterol.total/Cho lesterol in HDL [Mass ratio] 6.1 {ratio} Abnormal [facility].; [facility] Triglyceride [Mass/Vol] 171 mg/dL Abnormal [facility].; [facility] Vital Signs Date Time Vital Sign Value Performing Clinician Facility 11-10-2024 08:18-0400 Body height 177.[address] Kerline Craven MD Work Phone: [facility] 11-10-2024 08:18-0400 Body mass index (BMI) [Ratio] 24.3 kg/m2 Dr. Kerline Craven MD Work Phone: [facility] 11-10-2024 08:18-0400 Body weight 76.[address] Kerline Craven MD Work Phone: [facility] 05-20-2023 07:57-0500 Body height 177.[address] Kerline Craven Work Phone: [facility] 05-20-2023 07:57-0500 Body mass index (BMI) [Ratio] 27.3 kg/m2 Dr. Kerline Craven Work Phone: [facility] 05-20-2023 07:57-0500 Body temperature 97.2 [degF] Dr. Kerline Craven Work Phone: [facility] 05-20-2023 07:57-0500 Body weight 86.[address] Kerline Craven Work Phone: [facility] 05-20-2023 07:57-0500 Diastolic blood pressure 70 mm[Hg] Dr. Kerline Craven Work Phone: [facility] 05-20-2023 07:57-0500 Heart rate 63 /min Dr. Kerline Craven Work Phone: [facility] 05-20-2023 07:57-0500 Respiratory rate 16 /min Dr. Kerline Craven Work Phone: [facility] 05-20-2023 07:57-0500 SaO2% (BldA) [Mass fraction] 98 % Dr. Kerline Craven Work Phone: [facility] 05-20-2023 07:57-0500 Systolic blood pressure 120 mm[Hg] Dr. Kerline Craven Work Phone: [facility] 09-11-2022 10:00-0400 Body height 176.53 cm Christine Song MA [facility].; [facility] 09-11-2022 10:00-0400 Body mass index (BMI) [Ratio] 26.64 kg/m2 Christine Song MA [facility].; [facility]. 09-11-2022 10:00-0400 Body surface area Derived from formula 2 m2 Christine Song MA [facility].; [facility]. 09-11-2022 10:00-0400 Body weight 83.01 kg Christine Song MA [facility].; [facility] 09-11-2022 10:00-0400 Diastolic blood pressure 81 mm[Hg] Christine Song MA [facility].; [facility]. Comment on above: Patient Position: Sitting; Cuff Location : Left Arm; Cuff Size: Standard 09-11-2022 10:00-0400 Heart rate 56 /min Christine Song MA [facility].; [facility] Comment on above: Pattern: Regular 09-11-2022 10:00-0400 Systolic blood pressure 147 mm[Hg] Christine Song MA [facility].; [facility]. Comment on above: Patient Position: Sitting; Cuff Location : Left Arm; Cuff Size: Standard 12-04-2021 10:31-0400 Body height 176.53 cm Imani Lucas LPN [facility].; [place] [employer] [place] [facility] 12-04-2021 10:31-0400 Body mass index (BMI) [Ratio] 26.78 kg/m2 Imani Lucas LPN [facility].; [place] [employer] [place] [facility]. 12-04-2021 10:31-0400 Body surface area Derived from formula 2 m2 Imani Lucas LPN [facility].; [employer] [place] [facility], [facility]. 12-04-2021 10:31-0400 Body weight 83.46 kg Imani Lucas LPN [facility].; [place] [employer] [place] [facility]. 12-04-2021 10:31-0400 Diastolic blood pressure 85 mm[Hg] Imani Lucas LPN [facility].; [employer]. Comment on above: Patient Position: Sitting; Cuff Location : Left Arm; Cuff Size: Standard 12-04-2021 10:31-0400 Heart rate 52 /min Imani Lucas LPN [facility], [facility].; [employer]. Comment on above: Pattern: Regular 12-04-2021 10:31-0400 Systolic blood pressure 136 mm[Hg] Imani Lucas LPN [facility].; [employer], [employer]. Comment on above: Patient Position: Sitting; Cuff Location : Left Arm; Cuff Size: Standard 07-04-2021 08:03-0400 Body height 176.53 cm Margaret Starr RN [facility].; [employer]. 07-04-2021 08:03-0400 Body mass index (BMI) [Ratio] 26.64 kg/m2 Margaret Starr RN [place] [employer] [place] [facility], [facility].; [employer], [employer]. 07-04-2021 08:03-0400 Body surface area Derived from formula 2 m2 Margaret Starr RN [place] [employer] [place] [facility].; [employer]. 07-04-2021 08:03-0400 Body weight 83.01 kg Margaret Starr RN [place] [employer] [place] [facility].; [employer]. 07-04-2021 08:03-0400 Diastolic blood pressure 68 mm[Hg] Margaret Starr RN [place] [employer] [place] [facility].; [employer]. Comment on above: Patient Position: Sitting; Cuff Location : Left Arm; Cuff Size: Standard 07-04-2021 08:03-0400 Heart rate 59 /min Margaret Starr RN [place] [employer] [place] [facility].; [employer]. Comment on above: Pattern: Regular 07-04-2021 08:03-0400 Systolic blood pressure 120 mm[Hg] Margaret Starr RN [facility].; [place] [employer] [place] [facility] Comment on above: Patient Position: Sitting; Cuff Location : Left Arm; Cuff Size: Standard 01-09-2021 09:190400 Body height 176.53 cm Dacia Galloway LPN [facility].; [place] [employer] [place] [facility]. 01-09-2021 09:190400 Body mass index (BMI) [Ratio] 26.35 kg/m2 [facility].; [place] [employer]. 01-09-2021 09:040 Body surface area Derived from formula 1.99 m2 Dacia Galloway [facility].; [place] [employer] [place] [facility]. 01-09-2021 09:040 Body weight 82.1 kg Dacia Galloway LPN [facility].; [place] [employer] [place] [facility]. 01-09-2021 09:190400 Diastolic blood pressure 69 mm[Hg] Dacia Galloway [facility].; [employer]. Comment on above: Patient Position: Sitting; Cuff Location : Right Arm; Cuff Size: Standard 01-09-2021 09:190400 Heart rate 60 /min Dacia Galloway LPN [facility].; [employer]. Comment on above: Pattern: Regular 01-09-2021 09:190400 Systolic blood pressure 114 mm[Hg] Dacia Galloway [facility].; [employer]. Comment on above: Patient Position: Sitting; Cuff Location : Right Arm; Cuff Size: Standard 08-16-2020 08:060400 Body height 176.53 cm Nelda Hale LPN [facility].; [place] [employer]. 08-16-2020 08:06-0400 Body mass index (BMI) [Ratio] 26.64 kg/m2 Nelda Hale LPN [facility].; [place] [employer]. 08-16-2020 08:06-0400 Body surface area Derived from formula 2 m2 Nelda Hale LPN [facility].; [employer] [place] [facility], [facility]. 08-16-2020 08:06-0400 Body weight 83.01 kg Nelda Hale LPN [facility].; [employer] 08-16-2020 08:06-0400 Diastolic blood pressure 82 mm[Hg] Nelda Hale LPN [facility], Inc.; [employer], [employer]. Comment on above: Patient Position: Sitting; Cuff Location : Left Arm; Cuff Size: Standard 08-16-2020 08:06-0400 Heart rate 55 /min Nelda Hale LPN [facility].; [employer], [employer]. Comment on above: Pattern: Regular 08-16-2020 08:06-0400 Systolic blood pressure 129 mm[Hg] Nelda Hale LPN [facility], Inc.; [employer], [employer]. Comment on above: Patient Position: Sitting; Cuff Location : Left Arm; Cuff Size: Standard 05-02-2020 09:11-0500 Body height 176.53 cm Nelda Hale LPN [facility].; [employer], [employer]. 05-02-2020 09:11-0500 Body mass index (BMI) [Ratio] 26.78 kg/m2 Nelda Hale LPN [facility].; [employer] 05-02-2020 09:11-0500 Body surface area Derived from formula 2 m2 Nelda Hale LPN [facility].; [employer], [employer]. 05-02-2020 09:11-0500 Body weight 83.46 kg Nelda Hale LPN [facility].; [employer], [employer]. 05-02-2020 09:11-0500 Diastolic blood pressure 78 mm[Hg] Nelda Hale LPN [place] [employer] [place] [facility], [facility].; [employer], [employer]. Comment on above: Patient Position: Sitting; Cuff Location : Left Arm; Cuff Size: Standard 05-02-2020 09:11-0500 Heart rate 92 /min Nelda Hale LPN [facility].; [employer], [employer]. Comment on above: Pattern: Regular 05-02-2020 09:11-0500 Systolic blood pressure 118 mm[Hg] Nelda Hale LPN [facility], Inc.; [employer], [employer]. Comment on above: Patient Position: Sitting; Cuff Location : Left Arm; Cuff Size: Standard 04-16-2020 08:24-0500 Body height 176.53 cm Nelda Hale LPN [facility], Inc.; [employer] 04-16-2020 08:24-0500 Body mass index (BMI) [Ratio] 26.78 kg/m2 Nelda Hale LPN [facility], Inc.; [employer] 04-16-2020 08:24-0500 Body surface area Derived from formula 2 m2 Nelda Hale LPN [facility], Inc.; [employer] 04-16-2020 08:24-0500 Body weight 83.46 kg Nelda Hale LPN [place] [employer] [place] [facility], [facility].; [employer] 04-16-2020 08:24-0500 Diastolic blood pressure 72 mm[Hg] Nelda Hale LPN [place] [employer] [place] [facility], [facility].; [employer], [employer]. Comment on above: Patient Position: Sitting; Cuff Location : Left Arm; Cuff Size: Standard 04-16-2020 08:24-0500 Heart rate 54 /min Nelda Hale LPN [facility], Inc.; [employer], [employer]. Comment on above: Pattern: Regular 04-16-2020 08:24-0500 Systolic blood pressure 136 mm[Hg] Nelda Hale LPN [place] [employer] [place] [facility], [facility].; [employer]. Comment on above: Patient Position: Sitting; Cuff Location : Left Arm; Cuff Size: Standard 12-21-2018 09:41-0400 Body height 176.53 cm Ritu Vera LPN [place] [employer] [place] [facility], [facility].; [employer], [employer]. 12-21-2018 09:41-0400 Body mass index (BMI) [Ratio] 26.49 kg/m2 Ritu Vera [facility] [employer] [place] [facility], [facility].; [employer], [employer]. 12-21-2018 09:41-0400 Body surface area Derived from formula 2 m2 Ritu Beckhamnita ZHOU [place] [employer] [place] [facility], [facility].; [employer] 12-21-2018 09:41-0400 Body temperature 97.5 [degF] Ritu Vera CLIENT SUCCESS MANAGER [facility], Inc.; [employer] Comment on above: Method: Tympanic 12-21-2018 09:41-0400 Body weight 82.56 kg Ritu Wenita ZHOU [place] [employer] [place] [facility], [facility].; [employer] 12-21-2018 09:41-0400 Diastolic blood pressure 84 mm[Hg] [facility]ita [facility] [employer] [place] [facility], [facility].; [employer] Comment on above: Patient Position: Sitting; Cuff Location : Left Arm; Cuff Size: Standard 12-21-2018 09:41-0400 Heart rate 72 /min Ritu Wenita CLIENT SUCCESS MANAGER [place] [employer] [place] [facility], [facility].; [employer] Comment on above: Pattern: Regular 12-21-2018 09:41-0400 Inhaled oxygen concentration 20 % Ritu Wenita ZHOU [place] [employer] [place] [facility], [facility].; [employer] Comment on above: Room air 12-21-2018 09:41-0400 Inhaled oxygen concentration 21 % Ritu Wenita [facility] [employer] [place] [facility], [facility].; [employer] Comment on above: Room air 12-21-2018 09:41-0400 SaO2% (BldA) [Mass fraction] 98 % Ritu Wenita ZHOU [place] [employer] [place] [facility], [facility].; [employer] 12-21-2018 09:41-0400 Systolic blood pressure 132 mm[Hg] Ritu Wenita ZHOU [place] [employer] [place] [facility], [facility].; [employer] Comment on above: Patient Position: Sitting; Cuff Location : Left Arm; Cuff Size: Standard 01-06-2018 10:03-0400 Body height 176.53 cm Margaret Starr RN [facility], Inc.; [employer]. 01-06-2018 10:03-0400 Body mass index (BMI) [Ratio] 26.2 kg/m2 Margaret Starr RN [employer]. 01-06-2018 10:03-0400 Body surface area Derived from formula 1.99 m2 Margaret Starr RN [employer]. 01-06-2018 10:03-0400 Body temperature 97.8 [degF] Margaret Starr RN [employer].; [employer]. Comment on above: Method: Tympanic 01-06-2018 10:03-0400 Body weight 81.65 kg Margaret Starr RN [employer].; [employer]. 01-06-2018 10:03-0400 Diastolic blood pressure 83 mm[Hg] Margaret Starr RN [employer].; [employer]. Comment on above: Patient Position: Sitting; Cuff Location : Left Arm; Cuff Size: Standard 01-06-2018 10:03-0400 Heart rate 58 /min Margaret Starr RN [employer]. Comment on above: Pattern: Regular 01-06-2018 10:03-0400 Systolic blood pressure 125 mm[Hg] Margaret Starr RN [employer].; [employer]. Comment on above: Patient Position: Sitting; Cuff Location : Left Arm; Cuff Size: Standard 04-28-2017 09:29-0500 Body height 176.53 cm Lizbeth Frazier LPN [employer]. 04-28-2017 09:29-0500 Body mass index (BMI) [Ratio] 26.2 kg/m2 Lizbeth Frazier LPN [employer].; [employer]. 04-28-2017 09:29-0500 Body surface area Derived from formula 1.99 m2 Lizbeth Frazier LPN [employer].; [employer] 04-28-2017 09:29-0500 Body temperature 99.9 [degF] Lizbeth Frazier LPN [employer].; [employer] [facility] Comment on above: Method: Tympanic 04-28-2017 09:29-0500 Body weight 81.65 kg Lizbeth Sargent Karin [facility] [employer] [place] [facility], [facility].; [employer] 04-28-2017 09:29-0500 Diastolic blood pressure 69 mm[Hg] Lizbeth Sargent Karin ZHOU [place] [employer] [place] [facility], Inc.; [employer]. Comment on above: Patient Position: Sitting; Cuff Location : Left Arm; Cuff Size: Standard 04-28-2017 09:29-0500 Heart rate 99 /min Lizbeth Sargent Karin [facility] [employer] [place] [facility], [facility].; [employer] Comment on above: Pattern: Regular 04-28-2017 09:29-0500 Systolic blood pressure 117 mm[Hg] Lizbeth Sargent Karin [facility] [employer] [place] [facility], [facility].; [employer] Comment on above: Patient Position: Sitting; Cuff Location : Left Arm; Cuff Size: Standard 10-15-2016 15:31-0400 Body height 176.53 cm Ritu Vera LPN [employer]. 10-15-2016 15:31-0400 Body mass index (BMI) [Ratio] 25.91 kg/m2 Ritu Vera [facility], Inc.; [employer] 10-15-2016 15:31-0400 Body surface area Derived from formula 1.98 m2 Ritu Vera LPN [employer] [place] [facility], [facility].; [employer] 10-15-2016 15:31-0400 Body temperature 98.4 [degF] Ritu Vera LPN [employer]. Comment on above: Method: Tympanic 10-15-2016 15:31-0400 Body weight 80.74 kg Ritu Vera LPN [employer], [employer] 10-15-2016 15:31-0400 Diastolic blood pressure 84 mm[Hg] Ritu [facility] Center[facility], Inc.; [employer] Comment on above: Patient Position: Sitting; Cuff Location : Left Arm; Cuff Size: Standard 10-15-2016 15:31-0400 Heart rate 64 /min Ritu Chuy ZHOU [employer].; [employer]. Comment on above: Pattern: Regular 10-15-2016 15:31-0400 Systolic blood pressure 135 mm[Hg] Ritu Chuy ZHOU [employer].; [employer]. Comment on above: Patient Position: Sitting; Cuff Location : Left Arm; Cuff Size: Standard 04-09-2016 08:23-0500 Body height 176.53 cm Neel Domingo MD Work Phone: [employer] 04-09-2016 08:23-0500 Body mass index (BMI) [Ratio] 25.33 kg/m2 Neel Domingo MD Work Phone: [employer] 04-09-2016 08:23-0500 Body surface area Derived from formula 1.96 m2 Neel Domingo MD Work Phone: [employer] 04-09-2016 08:23-0500 Body weight 78.93 kg Neel Domingo MD Work Phone: [employer] 04-09-2016 08:23-0500 Diastolic blood pressure 82 mm[Hg] Neel Domingo MD Work Phone: [employer] Comment on above: Patient Position: Sitting; Cuff Location : Right Arm; Cuff Size: Large 04-09-2016 08:23-0500 Heart rate 62 /min Neel Domingo MD Work Phone: [employer] Comment on above: Pattern: Regular 04-09-2016 08:23-0500 Systolic blood pressure 136 mm[Hg] Neel Domingo MD Work Phone: [employer] Comment on above: Patient Position: Sitting; Cuff Location : Right Arm; Cuff Size: Large 05-24-2015 13:52-0500 Body height 176.53 cm Sachi Sebastian CLIENT SUCCESS MANAGER [facility], Inc.; [employer] 05-24-2015 13:52-0500 Body mass index (BMI) [Ratio] 26.35 kg/m2 Sachi Sebastian CLIENT SUCCESS MANAGER [facility], Inc.; [employer] 05-24-2015 13:52-0500 Body surface area Derived from formula 1.99 m2 Sachi Sebastian [facility], Inc.; [employer] 05-24-2015 13:52-0500 Body weight 82.1 kg Sachi Sebastian [facility] [employer] [place] [facility], [facility].; [employer], [employer]. 05-24-2015 13:52-0500 Diastolic blood pressure 75 mm[Hg] Sachi Sebastian [facility], Inc.; [employer] Comment on above: Patient Position: Sitting; Cuff Location : Left Arm; Cuff Size: Large 05-24-2015 13:52-0500 Heart rate 70 /min Sachi Sebastian [facility] [employer] [place] [facility], [facility].; [employer] Comment on above: Pattern: Regular 05-24-2015 13:52-0500 Systolic blood pressure 146 mm[Hg] Sachi Sebastian LPN [employer] [place] [facility], [facility].; [employer] Comment on above: Patient Position: Sitting; Cuff Location : Left Arm; Cuff Size: Large 04-12-2015 14:44-0500 Body height 176.53 cm Sachi Sebastian CLIENT SUCCESS MANAGER [facility], Inc.; [employer] 04-12-2015 14:44-0500 Body mass index (BMI) [Ratio] 26.35 kg/m2 Sachi Sebastian [facility] [employer] [place] [facility], [facility].; [employer] 04-12-2015 14:44-0500 Body surface area Derived from formula 1.99 m2 Sachi Sebastian CLIENT SUCCESS MANAGER [employer] [facility], [facility].; [employer] 04-12-2015 14:44-0500 Body weight 82.1 kg Darcy Trimble [facility], [employer].; [employer]. 04-12-2015 14:44-0500 Diastolic blood pressure 84 mm[Hg] Sachi Sebastian [facility], [facility].; [employer]. Comment on above: Patient Position: Sitting; Cuff Location : Left Arm; Cuff Size: Large 04-12-2015 14:44-0500 Heart rate 67 /min Sachi Sebastian [facility], Inc.; [employer]. Comment on above: Pattern: Regular 04-12-2015 14:44-0500 Systolic blood pressure 138 mm[Hg] Sachi Sebastian [facility], [employer].; [employer]. Comment on above: Patient Position: Sitting; Cuff Location : Left Arm; Cuff Size: Large 02-26-2015 13:05-0500 Body height 176.53 cm Neel [facility]ingo MD [facility] Phone[facility] [employer]. 02-26-2015 13:05-0500 Body mass index (BMI) [Ratio] 26.2 kg/m2 Neel Domingo MD Work Phone: [facility] [employer]. 02-26-2015 13:05-0500 Body surface area Derived from formula 1.99 m2 Neel Domingo MD Work Phone: [facility] [employer]. 02-26-2015 13:05-0500 Body temperature 98.1 [degF] Neel Domingo MD Work Phone: [facility] [employer]. Comment on above: Method: Tympanic 02-26-2015 13:05-0500 Body weight 81.65 kg Neel Domingo MD Work Phone: [facility] [employer]. 02-26-2015 13:05-0500 Diastolic blood pressure 81 mm[Hg] Neel Domingo MD Work Phone: [facility] [employer]. Comment on above: Patient Position: Sitting; Cuff Location : Left Arm; Cuff Size: Large 02-26-2015 13:05-0500 Heart rate 66 /min Neel Domingo MD Work Phone: [employer]. Comment on above: Pattern: Regular 02-26-2015 13:05-0500 Systolic blood pressure 116 mm[Hg] Neel Domingo MD Work Phone: [employer].; [employer]. Comment on above: Patient Position: Sitting; Cuff Location : Left Arm; Cuff Size: Large 04-21-2013 10:19-0500 Body height 177.8 cm Neel Domingo MD Work Phone: [employer].; [employer]. 04-21-2013 10:19-0500 Body mass index (BMI) [Ratio] 26.4 kg/m2 Neel Domingo MD Work Phone: [employer].; [employer]. 04-21-2013 10:19-0500 Body surface area Derived from formula 2.01 m2 Neel Domingo MD Work Phone: [employer].; [employer]. 04-21-2013 10:19-0500 Body temperature 97.6 [degF] Neel Domingo MD Work Phone: [employer].; [employer]. Comment on above: Method: Tympanic 04-21-2013 10:19-0500 Body weight 83.46 kg Neel Domingo MD Work Phone: [employer] 04-21-2013 10:19-0500 Diastolic blood pressure 75 mm[Hg] Neel Domingo MD Work Phone: [employer].; [employer]. Comment on above: Patient Position: Sitting; Cuff Location : Left Arm; Cuff Size: Standard 04-21-2013 10:19-0500 Heart rate 71 /min Neel Domingo MD Work Phone: [employer].; [employer]. Comment on above: Pattern: Regular 04-21-2013 10:19-0500 Inhaled oxygen concentration 20 % Neel Domingo MD Work Phone: [place] [employer] [facility] [facility] [employer]. Comment on above: Room air 04-21-2013 10:19-0500 Inhaled oxygen concentration 21 % Neel Domingo MD Work Phone: [place] [employer]. Comment on above: Room air 04-21-2013 10:19-0500 SaO2% (BldA) [Mass fraction] 97 % Neel Domingo MD Work Phone: [place] [employer].; [employer]. 04-21-2013 10:19-0500 Systolic blood pressure 125 mm[Hg] Neel Domingo MD Work Phone: [place] [employer].; [employer]. Comment on above: Patient Position: Sitting; Cuff Location : Left Arm; Cuff Size: Standard 07-05-2012 15:41-0400 Body height 177.8 cm Daphne Gentile LPN [place] [employer] [facility], [facility] [employer]. 07-05-2012 15:41-0400 Body mass index (BMI) [Ratio] 26.69 kg/m2 Daphne Gentile LPN [place] [employer] [place] [facility], [facility].; [employer]. 07-05-2012 15:41-0400 Body surface area Derived from formula 2.02 m2 Daphne Gentile LPN [place] [employer] [place] [facility], [facility].; [employer]. 07-05-2012 15:41-0400 Body temperature 98.1 [degF] Daphne Gentile CLIENT SUCCESS MANAGER [employer]. Comment on above: Method: Tympanic 07-05-2012 15:41-0400 Body weight 84.37 kg Daphne Gentile LPN [place] [employer] [place], [facility].; [employer]. 07-05-2012 15:41-0400 Diastolic blood pressure 73 mm[Hg] Daphne [facility] LPN [facility] [employer] [place] [facility] Comment on above: Patient Position: Sitting; Cuff Location : Left Arm; Cuff Size: Standard 07-05-2012 15:41-0400 Heart rate 65 /min Daphne Ramandeep Gentile [facility], Inc.; [employer], [employer]. Comment on above: Pattern: Regular 07-05-2012 15:41-0400 Systolic blood pressure 121 mm[Hg] Daphne Ramandeep Gentile [facility], Inc.; [employer], [employer]. Comment on above: Patient Position: Sitting; Cuff Location : Left Arm; Cuff Size: Standard 12-17-2011 14:39-0400 Body height 177.8 cm Sachi Sebastian [facility], Inc.; [place] [employer] [facility], [employer]. 12-17-2011 14:39-0400 Body mass index (BMI) [Ratio] 26.83 kg/m2 [facility] Jaz [facility], [facility].; [place] [employer] [facility], [facility]. 12-17-2011 14:39-0400 Body surface area Derived from formula 2.03 m2 Sachi Sebastian [facility], [facility].; [employer], [employer]. 12-17-2011 14:39-0400 Body weight 84.82 kg Sachi Sebastian [facility], [facility].; [employer], [employer]. 12-17-2011 14:39-0400 Diastolic blood pressure 79 mm[Hg] DarcyChanel Sebastian [facility], Inc.; [employer]. Comment on above: Patient Position: Sitting; Cuff Location : Left Arm; Cuff Size: Large 12-17-2011 14:39-0400 Heart rate 68 /min Sachi Sebastian [facility], [facility].; [employer]. Comment on above: Pattern: Regular 12-17-2011 14:39-0400 Systolic blood pressure 143 mm[Hg] Sachi Sebastian [facility], Inc.; [employer]. Comment on above: Patient Position: Sitting; Cuff Location : Left Arm; Cuff Size: Large 06-24-2011 14:59-0400 Body height 176.78 cm Ritu Vera CLIENT SUCCESS MANAGER [facility], [facility].; [place] [employer] [facility], [facility]. 06-24-2011 14:59-0400 Body mass index (BMI) [Ratio] 26.87 kg/m2 Ritu Beckhamnita ZHOU [facility], [facility].; [place] [employer] [facility], Inc[facility] 06-24-2011 14:59-0400 Body surface area Derived from formula 2.01 m2 Ritu Vera LPN [facility], Inc.; [place] [employer] [facility], [facility]. 06-24-2011 14:59-0400 Body weight 83.97 kg Ritu Beckhamnita Z[employer] [facility], [facility].; [place] [employer] [facility], [facility]. 06-24-2011 14:59-0400 Diastolic blood pressure 71 mm[Hg] Ritu Chuy [facility], [facility].; [employer] Comment on above: Patient Position: Sitting; Cuff Location : Left Arm; Cuff Size: Standard 06-24-2011 14:59-0400 Heart rate 71 /min Ritu Chuy [facility], [facility].; [employer] Comment on above: Pattern: Regular 06-24-2011 14:59-0400 Systolic blood pressure 124 mm[Hg] Ritu Beckhamnita [facility], [facility].; [place] [employer] [facility], [facility]. Comment on above: Patient Position: Sitting; Cuff Location : Left Arm; Cuff Size: Standard 03-17-2011 15:42-0500 Body height 180.34 cm Venus Huang LPN [facility], [facility].; [place] [employer] [facility], [facility]. 03-17-2011 15:42-0500 Body mass index (BMI) [Ratio] 26.19 kg/m2 Venus Huang CLIENT SUCCESS MANAGER [facility], [facility].; [place] [employer] [facility], [facility]. 03-17-2011 15:42-0500 Body surface area Derived from formula 2.05 m2 Venus Huang CLIENT SUCCESS MANAGER [facility], [facility].; [place] [employer] 03-17-2011 15:42-0500 Body weight 85.19 kg Venus Huang CLIENT SUCCESS MANAGER [facility], [facility].; [place] [employer] [facility]. 03-17-2011 15:42-0500 Diastolic blood pressure 76 mm[Hg] Venus Huang CLIENT SUCCESS MANAGER [employer] Comment on above: Patient Position: Sitting; Cuff Location : Left Arm; Cuff Size: Large 03-17-2011 15:42-0500 Heart rate 62 /min Venus Huang WINNIE [employer]. Comment on above: Pattern: Regular 03-17-2011 15:42-0500 Systolic blood pressure 129 mm[Hg] Venus Didi LeoSal CLIENT SUCCESS MANAGER [employer]. Comment on above: Patient Position: Sitting; Cuff Location : Left Arm; Cuff Size: Large 02-16-2011 13:05-0500 Body height 180.34 cm Courtney Lew RN [employer]. 02-16-2011 13:05-0500 Body mass index (BMI) [Ratio] 25.97 kg/m2 Courtney Lew RN [employer]. 02-16-2011 13:05-0500 Body surface area Derived from formula 2.05 m2 Courtney Lew RN [employer]. 02-16-2011 13:05-0500 Body temperature 97.4 [degF] Courtney Lew RN [employer]. Comment on above: Method: Tympanic 02-16-2011 13:05-0500 Body weight 84.46 kg Courtney Lew RN [employer]. 02-16-2011 13:05-0500 Diastolic blood pressure 74 mm[Hg] Courtney Lew RN [employer] Comment on above: Patient Position: Sitting; Cuff Location : Left Arm; Cuff Size: Standard 02-16-2011 13:05-0500 Heart rate 64 /min Courtney Lew RN [employer]. Comment on above: Pattern: Regular 02-16-2011 13:05-0500 Systolic blood pressure 124 mm[Hg] Courtney Lew RN [facility], [facility].; [employer] [facility] Comment on above: Patient Position: Sitting; Cuff Location : Left Arm; Cuff Size: Standard 08-12-2010 13:44-0400 Body height 177.8 cm Venus C Sal CLIENT SUCCESS MANAGER [facility] [employer] 08-12-2010 13:44-0400 Body mass index (BMI) [Ratio] 26.8 kg/m2 Venus C Como CLIENT SUCCESS MANAGER [facility], [facility].; [employer] [facility], [facility] 08-12-2010 13:44-0400 Body surface area Derived from formula 2.03 m2 Venus C Sal [facility], [facility].; [employer], [facility]. 08-12-2010 13:44-0400 Body weight 84.73 kg Venus C Como [facility], [facility].; [employer], [employer]. 08-12-2010 13:44-0400 Diastolic blood pressure 74 mm[Hg] Venus C Sal CLIENT SUCCESS MANAGER [facility], [facility].; [employer]. Comment on above: Patient Position: Sitting; Cuff Location : Left Arm; Cuff Size: Standard 08-12-2010 13:44-0400 Heart rate 66 /min Venus C Como CLIENT SUCCESS MANAGER [place] [employer] [facility], Inc.; [employer] Comment on above: Pattern: Regular 08-12-2010 13:44-0400 Systolic blood pressure 128 mm[Hg] Venus C Como CLIENT SUCCESS MANAGER [facility], [facility] [employer], [employer]. Comment on above: Patient Position: Sitting; Cuff Location : Left Arm; Cuff Size: Standard Encounters Encounter Date Encounter Type Care Provider Facility Start: 11-27-2024 ambulatory Kerline Craven Facility :[facility] Start: 11-10-2024 End: 11-10-[address] Gio Somers MD -[facility] Start: 11-10-2024 End: 11-10-[address] Kerline Craven MD Work Phone: -[facility] Start: 10-24-2024 ambulatory Micheal Sutherland ty:[facility] Start: 10-24-2024 Non-patient / Non-visit Dr. Josie ramos MD -[facility]- Start: 10-24-2024 End: 10-24-[address] Kerline Craven MD Work Phone: -Pulmonary Services/Neurology Start: 10-24-2024 End: 10-24-2024 Patient encounter procedure Micheal Taylor DPM -Pulmonary Services/Neurology Work Phone: Start: 10-24-2024 End: 10-24-2024 ambulatory Kerline Craven Facility:[facility] Start: 07-28-2024 End: 07-28-2024 Patient encounter procedure Micheal Taylor DPM -Cardiovascular Services Work Phone: Start: 07-28-2024 End: 07-28-2024 ambulatory Kerlinerubén Castrolay Facility:[facility] Start: 07-15-2024 ambulatory Micheal Sutherland ty:[facility] Start: 05-24-2024 End: 05-24-2024 ambulatory Kerline Herber Facility:[facility] Start: 05-24-2024 End: 05-24-2024 ambulatory [place] Facility:[facility] Start: 01-31-2024 End: 01-31-2024 ambulatory Kerline Herber Facility:[facility] Start: 08-18-2023 End: 08-18-2023 Telephone follow-up Jose Garcia PA-C Work Phone: [facility] Start: 08-14-2023 End: 08-14-2023 Emergency department patient visit BYRON FREEMAN [facility] Start: 05-20-2023 End: 05-20-[address] Kerline Craven Work Phone: [facility] Work Phone: Start: 05-20-2023 End: 05-20-[address] Kerline Craven Work Phone: [facility]-Laboratory, [facility] Start: 05-20-2023 End: 05-20-[address] Kerline Craven Work Phone: [facility] Work Phone: Start: 02-10-2023 End: 03-30-2023 ambulatory ANNIE WYATT [facility] Start: 12-01-2022 End: 12-01-2022 Emergency department patient visit BYRON FREEMAN [facility] Start: 09-25-2022 End: 09-25-2022 Patient encounter procedure Jose Garcia PA-C Work Phone: [employer] Start: 09-11-2022 End: 09-11-2022 ambulatory JOSE PAC GARCIA [facility] Start: 09-11-2022 End: 09-11-2022 Office outpatient visit 15 minutes Jose Garcia PA-C Work Phone: [employer] Start: 12-04-2021 End: 12-04-2021 Office outpatient visit 15 minutes Jose Garcia PA-C Work Phone: [employer] Start: 07-04-2021 End: 07-04-2021 Office outpatient visit 25 minutes Jose Garcia PA-C Work Phone: [employer] Start: 01-09-2021 End: 01-09-2021 Office outpatient visit 15 minutes Jose Garcia PA-C Work Phone: [employer] Start: 08-16-2020 End: 08-16-2020 Office outpatient visit 15 minutes Jose Garcia PA-C Work Phone: [employer] Start: 08-08-2020 End: 08-08-2020 Orders Jose Garcia PA-C Work Phone: [employer] Start: 08-05-2020 End: 08-05-2020 Orders Jose Garcia PA-C Work Phone: [employer] Start: 05-16-2020 End: 05-16-2020 Historical Summary Jose Garcia PA-C Work Phone: [employer] Start: 05-02-2020 End: 05-03-2020 Office outpatient visit 15 minutes Jose Garcia PA-C Work Phone: [employer] Start: 04-16-2020 End: 04-16-2020 Patient encounter status Nelda Geoffrey [facility]HOU [employer] Start: 04-16-2020 End: 04-16-2020 Periodic preventive med est patient 65yrs& older Jose Garcia PA-C Work Phone: [employer]. Start: 04-08-2020 End: 04-09-2020 Orders Ojse Garcia PA-C Work Phone: [employer] Start: 03-26-2020 End: 03-27-2020 Orders Jose Garcia PA-C Work Phone: [employer] Start: 12-07-2019 End: 12-07-2019 Orders Jose Garcia PA-C Work Phone: [employer] Start: 12-04-2019 End: 12-04-2019 Orders Jose Garcia PA-C Work Phone: [employer] Start: 12-04-2019 End: 12-04-2019 Telephone follow-up Jose Garcia PA-C Work Phone: [employer] Start: 11-28-2019 Emergency department patient visit ADEN Tolbert [facility] Start: 12-21-2018 End: 12-21-2018 Office outpatient visit 15 minutes Jose Garcia PA-C Work Phone: [employer] Start: 01-06-2018 End: 01-06-2018 Office outpatient visit 15 minutes Jose Garcia PA-C Work Phone: [employer] Start: 04-28-2017 End: 04-28-2017 Office outpatient visit 15 minutes Jose Garcia PA-C Work Phone: [employer] Start: 03-04-2017 Evaluation and management of inpatient Nilson Parker Facility:[facility] Start: 02-27-2017 End: 02-27-2017 Telephone follow-up Jose Garcia PA-C Work Phone: [employer] Start: 02-22-2017 End: 02-22-2017 Medication Jose Garcia PA-C Work Phone: [employer]. Start: 02-05-2017 End: 02-05-2017 Orders Jose Garcia PA-C Work Phone: [employer]. Start: 02-03-2017 End: 02-03-2017 Emergency department patient visit JESSICA Sargent [facility] Facility: Start: 10-15-2016 End: 10-15-2016 Office outpatient visit 15 minutes Jose Garcia PA-C Work Phone: [employer] Start: 04-09-2016 End: 04-10-2016 Patient encounter procedure Jose Garcia PA-C Work Phone: [employer]. Start: 04-09-2016 End: 04-10-2016 Patient encounter status Jose Garcia PA-C Work Phone: [employer] Start: 04-03-2016 End: 04-03-2016 Historical Summary Jose Garcia PA-C Work Phone: [employer]. Start: 04-01-2016 End: 04-01-2016 Orders Jose Garcia PA-C Work Phone: [employer]. Start: 01-31-2016 End: 01-31-2016 Orders Jose Garcia PA-C Work Phone: [employer] Start: 05-24-2015 End: 05-24-2015 Office outpatient visit 15 minutes Jose Garcia PA-C Work Phone: [employer] Start: 04-12-2015 End: 04-13-2015 Office outpatient visit 15 minutes Jose Garcia PA-C Work Phone: [employer] Start: 03-13-2015 End: 03-13-2015 Orders Jose Garcia PA-C Work Phone: [employer]. Start: 02-26-2015 End: 02-26-2015 Patient encounter status Jose Garcia PA-C Work Phone: [employer] Start: 02-26-2015 End: 02-26-2015 Periodic preventive med est patient 40-64yrs Jose Garcia PA-C Work Phone: [employer]. Start: 01-10-2015 End: 01-10-2015 Orders Jose Garcia PA-C Work Phone: [employer]. Start: 05-23-2013 End: 05-23-2013 Medication Jose Garcia PA-C Work Phone: [employer]. Start: 04-25-2013 End: 04-25-2013 Medication Jose Garcia PA-C Work Phone: [employer] Start: 04-21-2013 End: 04-21-2013 Patient encounter procedure Jose Garcia PA-C Work Phone: [employer] Start: 07-05-2012 End: 07-06-2012 Patient encounter procedure Jose Garcia PA-C Work Phone: [employer] Start: 12-17-2011 End: 12-17-2011 Patient encounter procedure Jose Garcia PA-C Work Phone: [employer] Start: 06-24-2011 End: 06-25-2011 Patient encounter procedure Jose Garcia PA-C Work Phone: [employer] Start: 05-08-2011 End: 05-08-2011 Orders Jose Garcia PA-C Work Phone: [employer] Start: 03-24-2011 End: 03-24-2011 Orders Jose [facility]C [facility] Start: 03-17-2011 End: 03-17-2011 Patient encounter procedure Jose Garcia PA-C Work Phone: [employer] [facility] [facility] Start: 02-16-2011 End: 02-16-2011 Patient encounter procedure Jose Garcia PA-C Work Phone: [facility] [facility] Start: 08-12-2010 End: 08-13-2010 Patient encounter procedure Jose Garcia PA-C [facility] Phone: [facility] Start: 04-09-2010 End: 04-09-2010 Medication Jose Garcia PA-C Work Phone: [employer] [facility] [facility] Start: 04-09-2010 End: 04-09-2010 Historical Summary Jose Garcia PA-C Work Phone: [employer] [facility] [facility] Start: 02-04-2010 End: 02-04-2010 Medication Jose Garcia PA-C Work Phone: [employer] [facility] [facility] Start: 02-04-2010 End: 02-04-2010 Historical Summary Jose Garcia PA-C Work Phone: [employer] [facility] [facility] Patient encounter status Margaret Starr [facility] Procedures Date Procedure Procedure Detail Performing Clinician Start: 07-28-2024 X-ray of lumbar spin e, two or three views Dr. Kerline Craven MD Work Phone: Start: 09-11-2022 End: 09-11-2022 Radex hand minimum 3 views Jose Whitaker n PA-C Work Phone: Start: 01-09-2021 End: 01-09-2021 Removal impacted cerumen instrumentation unilat Jose Garcia PA-C Work Phone: Start: 08-08-2020 End: 08-08-2020 Lab findings surveillance Christine Sarkar Comment on above: 102 in CMP Start: 08-08-2020 End: 08-08-2020 Lipid panel Christine Song MA Start: 05-10-2020 End: 05-10-2020 Cologuard Christine Song MA Comment on above: Normal. 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 Neel Domingo MD Work Phone: Start: 04-16-2020 End: 04-16-2020 Depression screening Neel Domingo MD Work Phone: Start: 04-16-2020 End: 04-16-2020 Scr dep neg, no plan reqd Neel Domingo MD Work Phone: Start: 04-08-2020 End: 04-08-2020 Prostate specific antigen measurement Christine Song MA Comment on above: 1.4 Start: 04-05-2018 End: 04-05-2018 Cataract surgery Christinekwabena Song MA Start: 01-06-2018 End: 01-10-2018 Radex spine cervical 4 or 5 views Neel Domingo MD Work Phone: Start: 04-28-2017 End: 04-28-2017 Body mass index documented Neel Domingo MD Work Phone: Start: 10-15-2016 End: 10-15-2016 Removal impacted cerumen instrumentation unilat Raya Singleton PA-C Work Phone: Start: 04-09-2016 End: 04-09-2016 Flu immunize order/admin Daphne lu CLIENT SUCCESS MANAGER Start: 02-03-2015 End: 02-03-2015 Ophthalmic examination and evaluation Christine Song MA Comment on above: Dr[place], [place] start of macular degeneration. Start: 07-05-2012 End: 10-04-2012 Removal impacted cerumen instrumentation unilat Neel Domingo MD Work Phone: Start: 07-05-2012 End: 07-05-2012 Tympanometry Neel Domingo MD Work Phone: Start: 04-05-1997 End: 04-05-1997 Repair of inguinal hernia Christine Sarkar Comment on above: x 2 Start: 04-05-1996 End: 04-05-1996 toe surgery Christine Song MA Plan of Treatment Date Care Activity Detail Author Start: 11-10-2024 X-ray of lumbosacral spine L/S Spine Bending Flex/Ext [facility] Start: 11-10-2024 XR Spine Lumbar and Sacrum Views [facility] Start: 05-20-2023 Patient referral [facility] Work Phone: Start: 03-17-2011 Patient Education Low Back Daniel n Exercises *: back pain Indication: Lumbar strain Start: 17-Mar-2011 Instruction Type: Patient Education [facility]; [facility] Patient referral [facility] Work Phone: Immunizations Immunization Date Immunization Notes Care Provider [facility] 05-20-2023 pneumococcal polysaccharide vaccine, [address] Kerline Craven Work Phone: [facility] 08-08-2021 Covid (Pfizer) Dr. Kerline guaman Work Phone: [facility] 01-06-2021 Covid (Pfizer) Dr. Kerilne guaman Work Phone: [facility] 06-14-2020 Covid (Pfizer) Dr. Kerline guaman Work Phone: [facility] 05-24-2020 Covid (Pfizer) Dr. Kerline guaman Work Phone: [facility] 02-04-2020 influenza, injectabl e, quadrivalent, contains preservative Jose Garcia PA-C Work Phone: [facility]; [facility] 02-04-2020 influenza, injectabl e, quadrivalent, preservative free Dr. Kerline Craven Work Phone: [facility] 04-09-2016 pneumococcal conjuga te vaccine, [address] Kerline Craven Work Phone: [facility] Comment on above: Site: Deltoid (Right )VIS Given: * Pneumococcal Conjugate (PCV13) (02/07/15) 04-09-2016 tetanus toxoid, redu jian diphtheria toxoid, and acellular pertussis vaccine, adsorbed Dr. Kerline Craven Work Phone: [facility] Comment on above: Site: Deltoid (Left) VIS Given: * Tdap (Tetanus, Diphtheria, Pertussis) (05/29/14) 02-04-2016 influenza, injectabl e, quadrivalent, preservative free Dr. Kerline Craven Work Phone: [facility] 02-04-2016 influenza, seasonal, injectable Jose Garcia PA-C Work Phone: [facility] Comment on above: VIS Given: * Inactiv ated Influenza (11/09/2014) 02-26-2015 zoster vaccine, live Dr. Maninder Craven Work Phone: [facility] Comment on above: Site: Posterior Uppe r Arm (Left)VIS Given: * Shingles (Herpes Zoster) (01/08/09) Payers Date Payer Category Payer Self-pay 2023 Unknown [id number] 1950 Unknown [id number] 2.16.8 [id number] 1950 Unknown [id number] 2.16.8 [id number] 1950 Unknown [id number] 2.16.8 [id number] 1950 Unknown [id number] 2.16.84 [id number] Unknown [employer] Unknown [id number] 2.16.8 [id number] Unknown [id number] 2.16.8 [id number] Unknown [id number] 2.16.8 [id number] Unknown [id number] 2.16.8 [id number] Unknown [id number] 2.16.8 [id number] Unknown [id number] 2.16.8 [id number] Unknown [id number] 2.16.8 [id number] Unknown [id number] 2.16.8 [id number] Unknown [id number] 2.16.8 [id number] Unknown [id number] 2.16.8 [id number] Social History Date Type Detail Facility Start: 05-20-2023 Tobacco smoking stat [facility] Unknown if ever smoked [facility] Start: 1950 Sex Assigned At Male W [facility] Alcohol Use: Alcohol Use: ; Occasional alcohol use. [facility], [facility] Caffeine Use Caffeine Use [facility]; [employer] [facility], [facility] Tobacco Use: Tobacco Use: ; N ever smoker. [facility].; [employer] [facility], [facility] Occasional alcohol use [facility]; [employer] [facility], [employer] Work Phone: Start: 06-29-2023 Never smoked tobacco [facility] Medical Equipment Procedure Code Equipment Code Equipment Origin al Text Equipment Identifier Dates SANJIV HUITRON FDA Start: 07-13-2023 CORBIN CADE FDA Start : 07-13-2023 ([id number]) Extra-gynaecolog ical surgical mesh, synthetic polymer, non-bioabsorbable [id number] FDA Start: 07-13-2023 SANJIV HUITRON FDA Start: 07-13-2023 RAYOSECURE STRAP FDA Start : 07-13-2023 SANJIV HUITRON FDA Start: 07-13-2023 RAYO,SECURE STRAP FDA Start : 07-13-2023 Procedure note 10-24-2024 Note Date & Type Note Facility 10-24-2024 Procedure note [facility] Evaluation note Note Date & Type Note Facility Evaluation note Diagnosis Onset Date GERD (gastroesophageal reflux disease) acute Psoriasis acute Pain of right thumb noneacti ve Immunization due noneactive Establishing care with new d octor, encounter for noneactive Sleep difficulties noneactiv e Mixed hyperlipidemia noneact shant Essential hypertension nonea ctive Left inguinal hernia noneact shant Right knee pain noneactive [facility] Work Phone: Evaluation note Note Date & Type Note Facility Evaluation note No assessment information availa ble [facility] Work Phone: Hospital Discharge instructions Note Date & Type Note Facility Hospital Discharge instructions Ambulatory OrdersGeneral Surgery Location: None Selected [facility] Work Phone: Reason for referral (narrative) Note Date & Type Note Facility Reason for referral (narrative) No reason for referral information available [facility] Work Phone: Summary Purpose Family History No Family History Records Found Relationship Condition Age at Onset Recorded Date/T barbara mother Malignant neoplasm Unknown father Myocardial infarction 48 daughter Neuromyelitis optica Unknown son Diabetes mellitus Unknown Breast Cancer Status:Active Comments:Mother. Coronary Artery Disease Status:Active Comments :Father. Breast Cancer Status:Active Comments:Mother. Coronary Artery Disease Status:Active Comments :Father. Breast Cancer Status:Active Comments:Mother. Coronary Artery Disease Status:Active Comments :Father. Breast Cancer Status:Active Comments:Mother. Coronary Artery Disease Status:Active Comments :Father. Breast Cancer Status:Active Comments:Mother. Coronary Artery Disease Status:Active Comments :Father. 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 Reason for Visit GERD (gastroesophage al reflux disease) Psoriasis Pain of right thumb Immunization due Establishing care with new doctor, encounter for Sleep difficulties Mixed hyperlipidemia Essential hypertension Left inguinal hernia Right knee pain Chief Complaint Admit Date Other specified peripheral vascular dise ases July 28, 2024 8:46am PVD July 28, 2024 9:3 6am BLE; OTHER HEREDITARY IDIOPATHIC NEUROPA LIANNE October 24, 2024 8:42am BLE; OTHER HEREDITARY IDIOPATHIC NEUROPA LIANNE October 24, 2024 11:02am Chief Complaint Admit Date Other specified peripheral vascular dise ases July 28, 2024 8:46am PVD July 28, 2024 9:3 6am BLE; OTHER HEREDITARY IDIOPATHIC NEUROPA LIANNE October 24, 2024 8:42am BLE; OTHER HEREDITARY IDIOPATHIC NEUROPA LIANNE October 24, 2024 11:02am LUMBAR SPINE November 10, 2024 8:1 6am Room 4 November 10, 2024 8:3 2am Additional Source Comments (unrecognized sect ion and content) No Status Records FoundNo Status Records FoundNo Status Records FoundNo Status Records FoundNo Status Records FoundNo Status Records Found INFORMATION SOURCE (unrecogn ized section and content) DATE CREATED AUTHOR 09/28/2017 [facility] DATE CREATED AUTHOR AUTHOR'S ORGANIZ ATION 09/28/2017 [facility] [place] DATE CREATED AUTHOR AUTHOR'S ORGANIZ ATION 11/28/2019 [facility] DATE CREATED AUTHOR AUTHOR'S ORGANIZ ATION 08/11/2020 [facility] DATE CREATED AUTHOR AUTHOR'S ORGANIZ ATION 08/17/2023 [facility] DATE CREATED AUTHOR AUTHOR'S ORGANIZ ATION 11/24/2024 [facility] Care Teams (unrecognized sec tion and content) Team Status: Active Member Role Status Dates Dr. Kerline Craven MD Primary Care Provider Active Team Status: Inactive Member Role Status Dates Dr. Kerline Craven MD Attending Provider Active Team Status: Inactive Member Role Status Dates Dr. Kerline Craven MD Primary Care Pro vider, Attending Provider, Referring Provider Active Team Status: Active Member Role/Relationship Status Dates Dr. Kerline Craven MD Primary Care Provider Active Team Status: Inactive Member Role/Relationship Status Dates Dr. Kerline Craven MD Primary Care Provider Active Start: July 28, 2024 End: July 28, 2024 Dr. Micheal Taylor DPM Attending Provider Active Start: July 28, 2024 End: July 28, 2024 Dr. Micheal Taylor DPM Referring Provider Active Start: July 28, 2024 End: July 28, 2024 Team Status: Active Member Role/Relationship Status Dates Dr. Iftikhar Headley MD Attending Provider Active Start: July 28, 2024 Dr. Micheal Taylor DPM Referring Provider Active Start: July 28, 2024 Team Status: Inactive Member Role/Relationship Status Dates Dr. Kerline Craven MD Primary Care Provider Active Start: October 24, 2024 End: October 24, 2024 Dr. iMcheal Taylor DPM Attending Provider Active Start: October 24, 2024 End: October 24, 2024 Dr. Micheal Taylor DPM Referring Provider Active Start: October 24, 2024 End: October 24, 2024 Team Status: Active Member Role/Relationship Status Dates Dr. Kerline Craven MD Primary Care Provider Active Start: October 24, 2024 Dr. Micheal Taylor DPM Referring Provider Active Start: October 24, 2024 Dr. Micheal Taylor DPM Other Provider Active Start: October 24, 2024 Dr. Josie Kirby MD Attending Provider Active Start: October 24, 2024 Team Status: Active Member Role/Relationship Status Dates Dr. Kerline Craven MD Primary Care Provider Active Start: November 10, 2024 Dr. Kerline Craven MD Referring Provider Active Start: November 10, 2024 BAR Godfrey Attending Provider Active Start: November 10, 2024 Team Status: Inactive Member Role/Relationship Status Dates Dr. Kerline Craven MD Primary Care Provider Active Start: November 10, 2024 End: November 10, 2024 Dr. Gio Somers MD Attending Provider Active S tart: November 10, 2024 End: November 10, 2024 Team Status: Inactive Member Role/Relationship Status Dates Dr. Kerline Craven MD Primary Care Provider Active Start: November 10, 2024 End: November 10, 2024 Dr. Kerline Craven MD Referring Provider Active Start: November 10, 2024 End: November 10, 2024 BAR Godfrey Attending Provider Active Start: November 10, 2024 End: November 10, 2024 Goals (unrecognized section and content) Goals may be documented in a n alternate sectionGoals may be documented in an alternate sectionGoals may be documented in an alternate sectionGoals may be documented in an alternate section FOR RECORDS PERTAINING TO PATIENTS WHO ARE [...] BE BASED ON THE PRIMARY CLINICAL RECORDS. [facility]. provides no warranty or guarantee of the accuracy or completeness of information in this document.
== END | disposition home or self-care (01) ==
PROVIDERS: PCP Internal Medicine; Referring Provider Nurse Practitioner Family; Visit Provider Nurse Practitioner Family
DX: M54.16 Radiculopathy, lumbar region (principal); G62.9 Polyneuropathy, unspecified
CPT/HCPCS: 72148